=== PATIENT | male | born 1980 | race Caucasian/White ===

== ENCOUNTER 2019-04-26 14:28 | Observation (INO) | payer MEDICAID, SELFPAY ==
[2019-04-26] VITALS (10 sets, daily range): BP systolic 149–180; BP diastolic 90–126; PULSE 60–84; RESP 14–22; TEMP 36.7–37.1; O2SAT 94–100; BMI 28.3
--- NOTE | 2019-04-26 14:41 | ECG_ITS ---
Measurements Intervals [place] Rate: 71 P: 32 NC: 146 QRS: -22 QRSD: 118 T: 46 QT: 392 QTc: 426 SINUS RHYTHM LEFT VENTRICULAR HYPERTROPHY AND ST-T CHANGE [VOLTAGE CRITERIA PLUS ST/T ABNORMALITY] POSSIBLE SEPTAL MYOCARDIAL INFARCTION , POSSIBLY ACUTE [30 ms Q WAVE IN V1/V2] Compared to ECG 12/02/2016 05:58:51 ST (T wave) deviation now present Myocardial infarct finding now present Electronically Signed On 04-27-2019 11:26:41 [employer] by Juan Carlos Herrera M.D. [email or web address]
--- NOTE | 2019-04-26 14:41 | CT_ITS ---
WS: [id number] CT scan of the head, 04/26/2019 Clinical Data: syncope, headache Comparison: None. DLP: 778.[address] scans at [facility] use at least one of these dose optimization techniques: automat ed exposure control; mA and/or kV adjustment per patient size (includes targeted exams where dose is matched to clinical indication); or iterative reconstruction. Findings: The ventricular system is normal without shift. No recent infarct or hemorrhage is seen. There are no abnormal intracerebral masses. The cerebellum and brainstem are not remarkable. Bony windows of the skull and skull base show no fractures or erosions. There is soft tissue swelling over the right side of the vertex of the skull. The mastoid air cells, internal auditory canals, rory la turcica, intraorbital contents, and paranasal sinuses are unremarkable. CT/CT head wo con* [id number] Impression: Negative CT scan of the head
--- NOTE | 2019-04-26 14:41 | W.ED.SYNCOPE ---
Documented by User: GRISELDA Oconnor 04/26/19 16:55 HPI - Syncope General: Chief Complaint: Syncope Stated Complaint: Med reaction Time Seen by Provider: 04/26/19 14:35 Source: patient Mode of arrival: ambulatory Limitations: no limitations History of Present Illness: HPI narrative: Patient comes in today for concerns of syncopal episode. Patient reports getting up off the couch and going to the bathroom and urinating just as he completed urination patient became lightheaded and passed out. Patient awoke when he hit the floor and has been alert since then. Patient had medication changed yesterday and started on minoxidil and torsemide for his blood pressure control. Patient appears well. Patient is at baseline now. Patient also takes clonidine for his blood pressure and methadone for substance abuse. Associated symptoms: Reports headache(s) Review of Systems General: Reports: 10 or more systems reviewed and unremarkable except in HPI and below Neuro: Reports: headache and other (near-syncopal episode) PFSH ED PFSH: Statuses (acute, chronic, etc) shown below reflect problem list status as previously entered and may not be historically accurate Medical History Abscess of leg (Acute) Acute kidney injury superimposed on CKD (Acute) H/O drainage of abscess (Acute) History of drug abuse (Acute) Surgical History History of appendectomy (Acute) Family History Mother Bladder cancer Father CHF (congestive heart failure) Social History Smoking and tobacco status: never smoked Alcohol intake: never Substance/Drug Use: former Date of last use: Currently on methadone Marital status: Current occupational status: employed Current occupation: Runs a business Physical Exam Const: COMMON NORMALS: no apparent distress and oriented x3 GENERAL APPEARANCE: cooperative HENMT: COMMON NORMALS: normocephalic, external ears normal, EAC's normal, TM's normal bilaterally and external nose normal HEAD & SCALP: normal to inspection and normocephalic FACE & SINUS: normal facial exam NOSE: external nose normal GENERAL EAR: hearing not grossly impaired EXTERNAL EAR: Yes external ears normal EXTERNAL AUDITORY CANAL: EAC's normal TYMPANIC MEMBRANE: TM's normal bilaterally MOUTH: oral and palatal mucosa normal THROAT: posterior oropharynx normal Eye: COMMON NORMALS: PERRL and EOMs intact bilaterally PUPIL: Yes PERRL Neck/C-Spine: COMMON NORMALS: full ROM and no lymphadenopathy Lymph: LYMPHATIC: no lymphedema noted Chest: COMMONS NORMALS: inspection of chest normal and palpation of chest normal Resp: COMMON NORMALS: normal respiratory effort and clear to auscultation bilaterally AUSCULTATION: clear to auscultation bilaterally Cardio: COMMON NORMALS: regular rate and regular rhythm RATE: regular rate RHYTHM: regular rhythm GI: COMMON NORMALS: normal to inspection, nondistended, normoactive bowel sounds and non-tender : COMMON NORMALS: Yes no CVA tenderness BLADDER/KIDNEY EXAM: Yes no CVA tenderness Back/Pelvis: COMMON NORMALS: no CVA tenderness and thoracic and lumbar spine normal to inspection Extremity: COMMON NORMALS: normal to inspection GENERAL: No edema Neuro: COMMON NORMALS: oriented x3, moves all extremities and no focal motor deficits Psych: COMMON NORMALS: mental status grossly normal and cooperative Skin: COMMON NORMALS: no rashes or lesions noted GENERAL SKIN EXAM: no rashes or lesions noted Course ED course: 1455, reviewed EKG with whom referred a copy to Dr. Herrera for further evaluation. due to some computer reading for possible MS. wjw 1535, patient reports improvement in headache, resting well, no acute distress noted. wjw 1700, reviewed with Jamie Gómez, agreed to graciously assume care on my departure. wjw Vital Signs: Vital signs: Vital Signs Temperature 98.1 F 04/27/19 00:00 Pulse Rate 71 04/27/19 00:00 Respiratory Rate 16 04/27/19 00:00 Blood Pressure 168/102 04/27/19 00:00 Pulse Oximetry 95 04/27/19 00:00 MDM - Syncope Lab Data: Labs: Lab Results 04/26/19 04/26/19 04/26/19 Range/Units 14:53 14:53 14:53 WBC 10.0 (4.0-10.0) 10^3/ uL RBC 5.82 H (4.1-5.3) 10^6/u L Hgb 16.3 (11.7-16.6) g/dL Hct 50.9 (42.0-52.0) % MCV 87.5 (80-94) fL MCH 28.0 (28.0-34.0) pg MCHC 32.0 (30.0-36.0) g/dL RDW 13.5 (12.1-15.1) % Plt Count 343 (130-400) 10^3/c mm MPV 9.1 (7.4-10.4) fL Neut % (Auto) 66.6 % Lymph % (Auto) 21.4 % [place] % (Auto) 7.2 % Eos % (Auto) 4.2 % Baso % (Auto) 0.4 % Neut # (Auto) 6.7 (1.8-7.7) 10^3/u L Lymph # (Auto) 2.1 (0.8-4.8) 10^3/u L [place] # (Auto) 0.7 (0.2-0.9) 10^3/u L Eos # (Auto) 0.4 (0.0-0.8) 10^3/u L Baso # (Auto) 0.0 (0.0-0.1) 10^3/u L Nucleated RBC % (a uto) 0 % Nucleated RBCs # 0.0 /100WBC Sodium 136 (136-145) mmol/L Potassium 4.1 (3.5-5.1) mmol/L Chloride 96 L (98-107) mmol/L Carbon Dioxide 32 H (22-29) mmol/L Anion Gap 12.1 (5-19) BUN 27 H (6-20) mg/dL Creatinine 1.9 H (0.7-1.2) mg/dL GFR Calculation 39.9 L (90-130) mL/min Glucose 120 H (74-109) mg/dL Calcium 9.6 (8.6-10.0) mg/Dl Total Bilirubin 0.2 (0.15-1.2) mg/dL AST 22 (0-40) U/L ALT 8 (0-41) U/L Alkaline Phosphata se 130 (40-130) IU/L Troponin T Baselin e 44 H (0-15) ng/mL Troponin T 120 Min [place] (0-15) ng/mL Delta Troponin T (0-10) ABS# Total Protein 6.6 (6.6-8.7) g/dL Albumin 3.2 L (3.5-5.2) g/dL Globulin 3.4 (1.3-4.6) g/dL Urine Color (Yellow) Urine Appearance (CLEAR) Urine pH (5-7) Ur Specific Gravit y (1.005-1.030) Urine Protein (Negative) Urine Glucose (UA) (Normal) Urine Ketones (Negative) Urine Occult Blood (Negative) Urine Nitrate (Negative) Urine Bilirubin (NEGATIVE) Urine Urobilinogen (Negative) mg/dL Ur Leukocyte Saskia ase (Negative) Urine RBC (0-2) /hpf Urine WBC (0-5) /hpf Ur Squamous Epith Cells (0-5) Urine Bacteria (NONE) Urine Mucus Ur Random Urea Nit rogn mg/dL Urine Creatinine (39-259) mg/dL Urine Opiates Scre en (Negative) ng/mL Ur Barbiturates Sc reen (Negative) ng/mL Ur Phencyclidine S crn (Negative) ng/mL Ur Amphetamines Sc reen (Negative) ng/mL U Benzodiazepines Scrn (Negative) ng/mL Urine Cocaine Scre en (Negative) ng/mL U Marijuana (THC) Screen (Negative) ng/mL 04/26/19 04/26/19 04/26/19 Range/Units 15:25 15:25 15:25 WBC (4.0-10.0) 10^3/ uL RBC (4.1-5.3) 10^6/u L Hgb (11.7-16.6) g/dL Hct (42.0-52.0) % MCV (80-94) fL MCH (28.0-34.0) pg MCHC (30.0-36.0) g/dL RDW (12.1-15.1) % Plt Count (130-400) 10^3/c mm MPV (7.4-10.4) fL Neut % (Auto) % Lymph % (Auto) % [place] % (Auto) % Eos % (Auto) % Baso % (Auto) % Neut # (Auto) (1.8-7.7) 10^3/u L Lymph # (Auto) (0.8-4.8) 10^3/u L [place] # (Auto) (0.2-0.9) 10^3/u L Eos # (Auto) (0.0-0.8) 10^3/u L Baso # (Auto) (0.0-0.1) 10^3/u L Nucleated RBC % (a uto) % Nucleated RBCs # /100WBC Sodium (136-145) mmol/L Potassium (3.5-5.1) mmol/L Chloride (98-107) mmol/L Carbon Dioxide (22-29) mmol/L Anion Gap (5-19) BUN (6-20) mg/dL Creatinine (0.7-1.2) mg/dL GFR Calculation (90-130) mL/min Glucose (74-109) mg/dL Calcium (8.6-10.0) mg/Dl Total Bilirubin (0.15-1.2) mg/dL AST (0-40) U/L ALT (0-41) U/L Alkaline Phosphata se (40-130) IU/L Troponin T Baselin e (0-15) ng/mL Troponin T 120 Min [place] (0-15) ng/mL Delta Troponin T (0-10) ABS# Total Protein (6.6-8.7) g/dL Albumin (3.5-5.2) g/dL Globulin (1.3-4.6) g/dL Urine Color Straw (Yellow) Urine Appearance Clear (CLEAR) Urine pH 7 (5-7) Ur Specific Gravit y 1.010 (1.005-1.030) Urine Protein 3+ H (Negative) Urine Glucose (UA) Norm (Normal) Urine Ketones Negative (Negative) Urine Occult Blood 2+ H (Negative) Urine Nitrate Negative (Negative) Urine Bilirubin Neg (NEGATIVE) Urine Urobilinogen Norm (Negative) mg/dL Ur Leukocyte Saskia ase Negative (Negative) Urine RBC 0-4 H (0-2) /hpf Urine WBC None (0-5) /hpf Ur Squamous Epith Cells None (0-5) Urine Bacteria Trace (NONE) Urine Mucus 1+ Ur Random Urea Nit rogn 162 mg/dL Urine Creatinine (39-259) mg/dL Urine Opiates Scre en Negative (Negative) ng/mL Ur Barbiturates Sc reen Negative (Negative) ng/mL Ur Phencyclidine S crn Negative (Negative) ng/mL Ur Amphetamines Sc reen Negative (Negative) ng/mL U Benzodiazepines Scrn Negative (Negative) ng/mL Urine Cocaine Scre en Negative (Negative) ng/mL U Marijuana (THC) Screen Negative (Negative) ng/mL 04/26/19 04/26/19 Range/Units 15:25 16:54 WBC (4.0-10.0) 10^3/ uL RBC (4.1-5.3) 10^6/u L Hgb (11.7-16.6) g/dL Hct (42.0-52.0) % MCV (80-94) fL MCH (28.0-34.0) pg MCHC (30.0-36.0) g/dL RDW (12.1-15.1) % Plt Count (130-400) 10^3/c mm MPV (7.4-10.4) fL Neut % (Auto) % Lymph % (Auto) % [place] % (Auto) % Eos % (Auto) % Baso % (Auto) % Neut # (Auto) (1.8-7.7) 10^3/u L Lymph # (Auto) (0.8-4.8) 10^3/u L [place] # (Auto) (0.2-0.9) 10^3/u L Eos # (Auto) (0.0-0.8) 10^3/u L Baso # (Auto) (0.0-0.1) 10^3/u L Nucleated RBC % (a uto) % Nucleated RBCs # /100WBC Sodium (136-145) mmol/L Potassium (3.5-5.1) mmol/L Chloride (98-107) mmol/L Carbon Dioxide (22-29) mmol/L Anion Gap (5-19) BUN (6-20) mg/dL Creatinine (0.7-1.2) mg/dL GFR Calculation (90-130) mL/min Glucose (74-109) mg/dL Calcium (8.6-10.0) mg/Dl Total Bilirubin (0.15-1.2) mg/dL AST (0-40) U/L ALT (0-41) U/L Alkaline Phosphata se (40-130) IU/L Troponin T Baselin e (0-15) ng/mL Troponin T 120 Min [place] 61.51 H (0-15) ng/mL Delta Troponin T 17.51 H* (0-10) ABS# Total Protein (6.6-8.7) g/dL Albumin (3.5-5.2) g/dL Globulin (1.3-4.6) g/dL Urine Color (Yellow) Urine Appearance (CLEAR) Urine pH (5-7) Ur Specific Gravit y (1.005-1.030) Urine Protein (Negative) Urine Glucose (UA) (Normal) Urine Ketones (Negative) Urine Occult Blood (Negative) Urine Nitrate (Negative) Urine Bilirubin (NEGATIVE) Urine Urobilinogen (Negative) mg/dL Ur Leukocyte Saskia ase (Negative) Urine RBC (0-2) /hpf Urine WBC (0-5) /hpf Ur Squamous Epith Cells (0-5) Urine Bacteria (NONE) Urine Mucus Ur Random Urea Nit rogn mg/dL Urine Creatinine 27 L (39-259) mg/dL Urine Opiates Scre en (Negative) ng/mL Ur Barbiturates Sc reen (Negative) ng/mL Ur Phencyclidine S crn (Negative) ng/mL Ur Amphetamines Sc reen (Negative) ng/mL U Benzodiazepines Scrn (Negative) ng/mL Urine Cocaine Scre en (Negative) ng/mL U Marijuana (THC) Screen (Negative) ng/mL EKG Data^: EKG 1: Attestation: I personally reviewed and interpreted this EKG as follows: (Sinus rhythm rate 71, mild ST elelvation in V1 and V2, no ectopy, reviewed with ekg on 12/02/16 notes minor changes elevation in V1 an V2 were similar. Consulted with Dr. Bundy. wjw) EKG 2: Attestation: I personally reviewed and interpreted this EKG as follows: (Sinus rhythm, rate 65 bpm, no change from previous EKG, minimal artifact as compared to previous. wjw) Discharge Plan Discharge Patient Disposition: Admitted As Inpatient Admit Provider: Orlin Dickson Clinical Impression: Acute kidney injury superimposed on CKD, Chest tightness, Troponin level elevated Condition: Stable Interventions: ED Discharge Assessment Last Done: 04/26/19 18:51 Discharge Date/Time: 04/26/19 18:52 Coding Level of Care Code ED Manufacturing Technologist for Chg Fwd Exam Problem Focused Documented by User: GRISELDA Marcos 04/26/19 17:43 HPI - Syncope General: Chief Complaint: Syncope Stated Complaint: Med reaction Time Seen by Provider: 04/26/19 14:35 PFSH ED PFSH: Statuses (acute, chronic, etc) shown below reflect problem list status as previously entered and may not be historically accurate Medical History Abscess of leg (Acute) Acute kidney injury superimposed on CKD (Acute) H/O drainage of abscess (Acute) History of drug abuse (Acute) Surgical History History of appendectomy (Acute) Family History Mother Bladder cancer Father CHF (congestive heart failure) Social History Smoking and tobacco status: never smoked Alcohol intake: never Substance/Drug Use: former Date of last use: Currently on methadone Marital status: Current occupational status: employed Current occupation: Runs a [employer] Vital Signs: Vital signs: Vital Signs Temperature 98.1 F 04/27/19 00:00 Pulse Rate 71 04/27/19 00:00 Respiratory Rate 16 04/27/19 00:00 Blood Pressure 168/102 04/27/19 00:00 Pulse Oximetry 95 04/27/19 00:00 MDM - Syncope MDM Narrative: Medical decision making narrative: I spoke with Dr. Pinto at 1740 showed him the new EKG and talked about the delta change lab in troponin. Dr. Cunningham agreed to take the patient from here. Lab Data: Labs: Lab Results 04/26/19 04/26/19 04/26/19 Range/Units 14:53 14:53 14:53 WBC 10.0 (4.0-10.0) 10^3/ uL RBC 5.82 H (4.1-5.3) 10^6/u L Hgb 16.3 (11.7-16.6) g/dL Hct 50.9 (42.0-52.0) % MCV 87.5 (80-94) fL MCH 28.0 (28.0-34.0) pg MCHC 32.0 (30.0-36.0) g/dL RDW 13.5 (12.1-15.1) % Plt Count 343 (130-400) 10^3/c mm MPV 9.1 (7.4-10.4) fL Neut % (Auto) 66.6 % Lymph % (Auto) 21.4 % [place] % (Auto) 7.2 % Eos % (Auto) 4.2 % Baso % (Auto) 0.4 % Neut # (Auto) 6.7 (1.8-7.7) 10^3/u L Lymph # (Auto) 2.1 (0.8-4.8) 10^3/u L [place] # (Auto) 0.7 (0.2-0.9) 10^3/u L Eos # (Auto) 0.4 (0.0-0.8) 10^3/u L Baso # (Auto) 0.0 (0.0-0.1) 10^3/u L Nucleated RBC % (a uto) 0 % Nucleated RBCs # 0.0 /100WBC Sodium 136 (136-145) mmol/L Potassium 4.1 (3.5-5.1) mmol/L Chloride 96 L (98-107) mmol/L Carbon Dioxide 32 H (22-29) mmol/L Anion Gap 12.1 (5-19) BUN 27 H (6-20) mg/dL Creatinine 1.9 H (0.7-1.2) mg/dL GFR Calculation 39.9 L (90-130) mL/min Glucose 120 H (74-109) mg/dL Calcium 9.6 (8.6-10.0) mg/Dl Total Bilirubin 0.2 (0.15-1.2) mg/dL AST 22 (0-40) U/L ALT 8 (0-41) U/L Alkaline Phosphata se 130 (40-130) IU/L Troponin T Baselin e 44 H (0-15) ng/mL Troponin T 120 Min [place] (0-15) ng/mL Delta Troponin T (0-10) ABS# Total Protein 6.6 (6.6-8.7) g/dL Albumin 3.2 L (3.5-5.2) g/dL Globulin 3.4 (1.3-4.6) g/dL Urine Color (Yellow) Urine Appearance (CLEAR) Urine pH (5-7) Ur Specific Gravit y (1.005-1.030) Urine Protein (Negative) Urine Glucose (UA) (Normal) Urine Ketones (Negative) Urine Occult Blood (Negative) Urine Nitrate (Negative) Urine Bilirubin (NEGATIVE) Urine Urobilinogen (Negative) mg/dL Ur Leukocyte Saskia ase (Negative) Urine RBC (0-2) /hpf Urine WBC (0-5) /hpf Ur Squamous Epith Cells (0-5) Urine Bacteria (NONE) Urine Mucus Ur Random Urea Nit rogn mg/dL Urine Creatinine (39-259) mg/dL Urine Opiates Scre en (Negative) ng/mL Ur Barbiturates Sc reen (Negative) ng/mL Ur Phencyclidine S crn (Negative) ng/mL Ur Amphetamines Sc reen (Negative) ng/mL U Benzodiazepines Scrn (Negative) ng/mL Urine Cocaine Scre en (Negative) ng/mL U Marijuana (THC) Screen (Negative) ng/mL 04/26/19 04/26/19 04/26/19 Range/Units 15:25 15:25 15:25 WBC (4.0-10.0) 10^3/ uL RBC (4.1-5.3) 10^6/u L Hgb (11.7-16.6) g/dL Hct (42.0-52.0) % MCV (80-94) fL MCH (28.0-34.0) pg MCHC (30.0-36.0) g/dL RDW (12.1-15.1) % Plt Count (130-400) 10^3/c mm MPV (7.4-10.4) fL Neut % (Auto) % Lymph % (Auto) % [place] % (Auto) % Eos % (Auto) % Baso % (Auto) % Neut # (Auto) (1.8-7.7) 10^3/u L Lymph # (Auto) (0.8-4.8) 10^3/u L [place] # (Auto) (0.2-0.9) 10^3/u L Eos # (Auto) (0.0-0.8) 10^3/u L Baso # (Auto) (0.0-0.1) 10^3/u L Nucleated RBC % (a uto) % Nucleated RBCs # /100WBC Sodium (136-145) mmol/L Potassium (3.5-5.1) mmol/L Chloride (98-107) mmol/L Carbon Dioxide (22-29) mmol/L Anion Gap (5-19) BUN (6-20) mg/dL Creatinine (0.7-1.2) mg/dL GFR Calculation (90-130) mL/min Glucose (74-109) mg/dL Calcium (8.6-10.0) mg/Dl Total Bilirubin (0.15-1.2) mg/dL AST (0-40) U/L ALT (0-41) U/L Alkaline Phosphata se (40-130) IU/L Troponin T Baselin e (0-15) ng/mL Troponin T 120 Min [place] (0-15) ng/mL Delta Troponin T (0-10) ABS# Total Protein (6.6-8.7) g/dL Albumin (3.5-5.2) g/dL Globulin (1.3-4.6) g/dL Urine Color Straw (Yellow) Urine Appearance Clear (CLEAR) Urine pH 7 (5-7) Ur Specific Gravit y 1.010 (1.005-1.030) Urine Protein 3+ H (Negative) Urine Glucose (UA) Norm (Normal) Urine Ketones Negative (Negative) Urine Occult Blood 2+ H (Negative) Urine Nitrate Negative (Negative) Urine Bilirubin Neg (NEGATIVE) Urine Urobilinogen Norm (Negative) mg/dL Ur Leukocyte Saskia ase Negative (Negative) Urine RBC 0-4 H (0-2) /hpf Urine WBC None (0-5) /hpf Ur Squamous Epith Cells None (0-5) Urine Bacteria Trace (NONE) Urine Mucus 1+ Ur Random Urea Nit rogn 162 mg/dL Urine Creatinine (39-259) mg/dL Urine Opiates Scre en Negative (Negative) ng/mL Ur Barbiturates Sc reen Negative (Negative) ng/mL Ur Phencyclidine S crn Negative (Negative) ng/mL Ur Amphetamines Sc reen Negative (Negative) ng/mL U Benzodiazepines Scrn Negative (Negative) ng/mL Urine Cocaine Scre en Negative (Negative) ng/mL U Marijuana (THC) Screen Negative (Negative) ng/mL 04/26/19 04/26/19 Range/Units 15:25 16:54 WBC (4.0-10.0) 10^3/ uL RBC (4.1-5.3) 10^6/u L Hgb (11.7-16.6) g/dL Hct (42.0-52.0) % MCV (80-94) fL MCH (28.0-34.0) pg MCHC (30.0-36.0) g/dL RDW (12.1-15.1) % Plt Count (130-400) 10^3/c mm MPV (7.4-10.4) fL Neut % (Auto) % Lymph % (Auto) % [place] % (Auto) % Eos % (Auto) % Baso % (Auto) % Neut # (Auto) (1.8-7.7) 10^3/u L Lymph # (Auto) (0.8-4.8) 10^3/u L [place] # (Auto) (0.2-0.9) 10^3/u L Eos # (Auto) (0.0-0.8) 10^3/u L Baso # (Auto) (0.0-0.1) 10^3/u L Nucleated RBC % (a uto) % Nucleated RBCs # /100WBC Sodium (136-145) mmol/L Potassium (3.5-5.1) mmol/L Chloride (98-107) mmol/L Carbon Dioxide (22-29) mmol/L Anion Gap (5-19) BUN (6-20) mg/dL Creatinine (0.7-1.2) mg/dL GFR Calculation (90-130) mL/min Glucose (74-109) mg/dL Calcium (8.6-10.0) mg/Dl Total Bilirubin (0.15-1.2) mg/dL AST (0-40) U/L ALT (0-41) U/L Alkaline Phosphata se (40-130) IU/L Troponin T Baselin e (0-15) ng/mL Troponin T 120 Min [place] 61.51 H (0-15) ng/mL Delta Troponin T 17.51 H* (0-10) ABS# Total Protein (6.6-8.7) g/dL Albumin (3.5-5.2) g/dL Globulin (1.3-4.6) g/dL Urine Color (Yellow) Urine Appearance (CLEAR) Urine pH (5-7) Ur Specific Gravit y (1.005-1.030) Urine Protein (Negative) Urine Glucose (UA) (Normal) Urine Ketones (Negative) Urine Occult Blood (Negative) Urine Nitrate (Negative) Urine Bilirubin (NEGATIVE) Urine Urobilinogen (Negative) mg/dL Ur Leukocyte Saskia ase (Negative) Urine RBC (0-2) /hpf Urine WBC (0-5) /hpf Ur Squamous Epith Cells (0-5) Urine Bacteria (NONE) Urine Mucus Ur Random Urea Nit rogn mg/dL Urine Creatinine 27 L (39-259) mg/dL Urine Opiates Scre en (Negative) ng/mL Ur Barbiturates Sc reen (Negative) ng/mL Ur Phencyclidine S crn (Negative) ng/mL Ur Amphetamines Sc reen (Negative) ng/mL U Benzodiazepines Scrn (Negative) ng/mL Urine Cocaine Scre en (Negative) ng/mL U Marijuana (THC) Screen (Negative) ng/mL Discharge Plan Discharge Patient Disposition: Admitted As Inpatient Admit Provider: Orlin Dickson Clinical Impression: Acute kidney injury superimposed on CKD, Chest tightness, Troponin level elevated Condition: Stable Interventions: ED Discharge Assessment Last Done: 04/26/19 18:51 Discharge Date/Time: 04/26/19 18:52 Coding Level of Care Code ED Manufacturing Technologist for Chg Fwd Exam Problem Focused Documented by User: Danielle Palomo Octavio 04/27/19 01:53 HPI - Syncope General: Chief Complaint: Syncope Stated Complaint: Med reaction Time Seen by Provider: 04/26/19 14:35 PFSH ED PFSH: Statuses (acute, chronic, etc) shown below reflect problem list status as previously entered and may not be historically accurate Medical History Abscess of leg (Acute) Acute kidney injury superimposed on CKD (Acute) H/O drainage of abscess (Acute) History of drug abuse (Acute) Surgical History History of appendectomy (Acute) Family History Mother Bladder cancer Father CHF (congestive heart failure) Social History Smoking and tobacco status: never smoked Alcohol intake: never Substance/Drug Use: former Date of last use: Currently on methadone Marital status: Current occupational status: employed Current occupation: Runs a business [employer] Vital Signs: Vital signs: Vital Signs Temperature 98.1 F 04/27/19 00:00 Pulse Rate 71 04/27/19 00:00 Respiratory Rate 16 04/27/19 00:00 Blood Pressure 168/102 04/27/19 00:00 Pulse Oximetry 95 04/27/19 00:00 MDM - Syncope MDM Narrative: Medical decision making narrative: 17:45 -abnormal EKG and positive delta brought to my attention by Sanjay Gómez APN. Please see all previous physician and midlevel notes for histories, physical exam and medical decision-making notes. It was reported at the patient's first EKG was seen by Dr. Bundy and Dr. Herrera. Patient second EKG looks like he has progressive changes with T wave inversions and biphasic T waves in V4 through V6 and subtle ST segment depression in V6. Dr. Herrera reviewed these with me and he agrees but does not think there is any element of STEMI. The patient does relate to me he has had chest pressure intermittently today brought on by exertion but currently has no symptoms. I reviewed the case with Dr. Medellin who is agreeable to admission for cardiac consult and formal testing. Further care will be dictated by Dr. Herrera and Dr. Medellin on the floor. Lab Data: Attestation: I reviewed the patient's lab results. Labs: Lab Results 04/26/19 04/26/19 04/26/19 Range/Units 14:53 14:53 14:53 WBC 10.0 (4.0-10.0) 10^3/ uL RBC 5.82 H (4.1-5.3) 10^6/u L Hgb 16.3 (11.7-16.6) g/dL Hct 50.9 (42.0-52.0) % MCV 87.5 (80-94) fL MCH 28.0 (28.0-34.0) pg MCHC 32.0 (30.0-36.0) g/dL RDW 13.5 (12.1-15.1) % Plt Count 343 (130-400) 10^3/c mm MPV 9.1 (7.4-10.4) fL Neut % (Auto) 66.6 % Lymph % (Auto) 21.4 % [place] % (Auto) 7.2 % Eos % (Auto) 4.2 % Baso % (Auto) 0.4 % Neut # (Auto) 6.7 (1.8-7.7) 10^3/u L Lymph # (Auto) 2.1 (0.8-4.8) 10^3/u L [place] # (Auto) 0.7 (0.2-0.9) 10^3/u L Eos # (Auto) 0.4 (0.0-0.8) 10^3/u L Baso # (Auto) 0.0 (0.0-0.1) 10^3/u L Nucleated RBC % (a uto) 0 % Nucleated RBCs # 0.0 /100WBC Sodium 136 (136-145) mmol/L Potassium 4.1 (3.5-5.1) mmol/L Chloride 96 L (98-107) mmol/L Carbon Dioxide 32 H (22-29) mmol/L Anion Gap 12.1 (5-19) BUN 27 H (6-20) mg/dL Creatinine 1.9 H (0.7-1.2) mg/dL GFR Calculation 39.9 L (90-130) mL/min Glucose 120 H (74-109) mg/dL Calcium 9.6 (8.6-10.0) mg/Dl Total Bilirubin 0.2 (0.15-1.2) mg/dL AST 22 (0-40) U/L ALT 8 (0-41) U/L Alkaline Phosphata se 130 (40-130) IU/L Troponin T Baselin e 44 H (0-15) ng/mL Troponin T 120 Min [place] (0-15) ng/mL Delta Troponin T (0-10) ABS# Total Protein 6.6 (6.6-8.7) g/dL Albumin 3.2 L (3.5-5.2) g/dL Globulin 3.4 (1.3-4.6) g/dL Urine Color (Yellow) Urine Appearance (CLEAR) Urine pH (5-7) Ur Specific Gravit y (1.005-1.030) Urine Protein (Negative) Urine Glucose (UA) (Normal) Urine Ketones (Negative) Urine Occult Blood (Negative) Urine Nitrate (Negative) Urine Bilirubin (NEGATIVE) Urine Urobilinogen (Negative) mg/dL Ur Leukocyte Saskia ase (Negative) Urine RBC (0-2) /hpf Urine WBC (0-5) /hpf Ur Squamous Epith Cells (0-5) Urine Bacteria (NONE) Urine Mucus Ur Random Urea Nit rogn mg/dL Urine Creatinine (39-259) mg/dL Urine Opiates Scre en (Negative) ng/mL Ur Barbiturates Sc reen (Negative) ng/mL Ur Phencyclidine S crn (Negative) ng/mL Ur Amphetamines Sc reen (Negative) ng/mL U Benzodiazepines Scrn (Negative) ng/mL Urine Cocaine Scre en (Negative) ng/mL U Marijuana (THC) Screen (Negative) ng/mL 04/26/19 04/26/19 04/26/19 Range/Units 15:25 15:25 15:25 WBC (4.0-10.0) 10^3/ uL RBC (4.1-5.3) 10^6/u L Hgb (11.7-16.6) g/dL Hct (42.0-52.0) % MCV (80-94) fL MCH (28.0-34.0) pg MCHC (30.0-36.0) g/dL RDW (12.1-15.1) % Plt Count (130-400) 10^3/c mm MPV (7.4-10.4) fL Neut % (Auto) % Lymph % (Auto) % [place] % (Auto) % Eos % (Auto) % Baso % (Auto) % Neut # (Auto) (1.8-7.7) 10^3/u L Lymph # (Auto) (0.8-4.8) 10^3/u L [place] # (Auto) (0.2-0.9) 10^3/u L Eos # (Auto) (0.0-0.8) 10^3/u L Baso # (Auto) (0.0-0.1) 10^3/u L Nucleated RBC % (a uto) % Nucleated RBCs # /100WBC Sodium (136-145) mmol/L Potassium (3.5-5.1) mmol/L Chloride (98-107) mmol/L Carbon Dioxide (22-29) mmol/L Anion Gap (5-19) BUN (6-20) mg/dL Creatinine (0.7-1.2) mg/dL GFR Calculation (90-130) mL/min Glucose (74-109) mg/dL Calcium (8.6-10.0) mg/Dl Total Bilirubin (0.15-1.2) mg/dL AST (0-40) U/L ALT (0-41) U/L Alkaline Phosphata se (40-130) IU/L Troponin T Baselin e (0-15) ng/mL Troponin T 120 Min [place] (0-15) ng/mL Delta Troponin T (0-10) ABS# Total Protein (6.6-8.7) g/dL Albumin (3.5-5.2) g/dL Globulin (1.3-4.6) g/dL Urine Color Straw (Yellow) Urine Appearance Clear (CLEAR) Urine pH 7 (5-7) Ur Specific Gravit y 1.010 (1.005-1.030) Urine Protein 3+ H (Negative) Urine Glucose (UA) Norm (Normal) Urine Ketones Negative (Negative) Urine Occult Blood 2+ H (Negative) Urine Nitrate Negative (Negative) Urine Bilirubin Neg (NEGATIVE) Urine Urobilinogen Norm (Negative) mg/dL Ur Leukocyte Saskia ase Negative (Negative) Urine RBC 0-4 H (0-2) /hpf Urine WBC None (0-5) /hpf Ur Squamous Epith Cells None (0-5) Urine Bacteria Trace (NONE) Urine Mucus 1+ Ur Random Urea Nit rogn 162 mg/dL Urine Creatinine (39-259) mg/dL Urine Opiates Scre en Negative (Negative) ng/mL Ur Barbiturates Sc reen Negative (Negative) ng/mL Ur Phencyclidine S crn Negative (Negative) ng/mL Ur Amphetamines Sc reen Negative (Negative) ng/mL U Benzodiazepines Scrn Negative (Negative) ng/mL Urine Cocaine Scre en Negative (Negative) ng/mL U Marijuana (THC) Screen Negative (Negative) ng/mL 04/26/19 04/26/19 Range/Units 15:25 16:54 WBC (4.0-10.0) 10^3/ uL RBC (4.1-5.3) 10^6/u L Hgb (11.7-16.6) g/dL Hct (42.0-52.0) % MCV (80-94) fL MCH (28.0-34.0) pg MCHC (30.0-36.0) g/dL RDW (12.1-15.1) % Plt Count (130-400) 10^3/c mm MPV (7.4-10.4) fL Neut % (Auto) % Lymph % (Auto) % [place] % (Auto) % Eos % (Auto) % Baso % (Auto) % Neut # (Auto) (1.8-7.7) 10^3/u L Lymph # (Auto) (0.8-4.8) 10^3/u L [place] # (Auto) (0.2-0.9) 10^3/u L Eos # (Auto) (0.0-0.8) 10^3/u L Baso # (Auto) (0.0-0.1) 10^3/u L Nucleated RBC % (a uto) % Nucleated RBCs # /100WBC Sodium (136-145) mmol/L Potassium (3.5-5.1) mmol/L Chloride (98-107) mmol/L Carbon Dioxide (22-29) mmol/L Anion Gap (5-19) BUN (6-20) mg/dL Creatinine (0.7-1.2) mg/dL GFR Calculation (90-130) mL/min Glucose (74-109) mg/dL Calcium (8.6-10.0) mg/Dl Total Bilirubin (0.15-1.2) mg/dL AST (0-40) U/L ALT (0-41) U/L Alkaline Phosphata se (40-130) IU/L Troponin T Baselin e (0-15) ng/mL Troponin T 120 Min [place] 61.51 H (0-15) ng/mL Delta Troponin T 17.51 H* (0-10) ABS# Total Protein (6.6-8.7) g/dL Albumin (3.5-5.2) g/dL Globulin (1.3-4.6) g/dL Urine Color (Yellow) Urine Appearance (CLEAR) Urine pH (5-7) Ur Specific Gravit y (1.005-1.030) Urine Protein (Negative) Urine Glucose (UA) (Normal) Urine Ketones (Negative) Urine Occult Blood (Negative) Urine Nitrate (Negative) Urine Bilirubin (NEGATIVE) Urine Urobilinogen (Negative) mg/dL Ur Leukocyte Saskia ase (Negative) Urine RBC (0-2) /hpf Urine WBC (0-5) /hpf Ur Squamous Epith Cells (0-5) Urine Bacteria (NONE) Urine Mucus Ur Random Urea Nit rogn mg/dL Urine Creatinine 27 L (39-259) mg/dL Urine Opiates Scre en (Negative) ng/mL Ur Barbiturates Sc reen (Negative) ng/mL Ur Phencyclidine S crn (Negative) ng/mL Ur Amphetamines Sc reen (Negative) ng/mL U Benzodiazepines Scrn (Negative) ng/mL Urine Cocaine Scre en (Negative) ng/mL U Marijuana (THC) Screen (Negative) ng/mL Imaging Data^: CT Head: Radiologist's impression: [address] [place] [address] CT Scan Report Signed Patient: Fabrice Kendrick Unit #: [id number] : 1980 Age/Sex: 38 / M ADM Date: 04/26/19 Loc: ER Room/Bed: Attending Dr: Ordering Provider/Ordering MD: Alfa Mora NP Date of Service: 04/26/19 Procedure(s): CT head wo con* [id number] Accession Number(s): [id number] Report Number: [id number] WS: [id number] CT scan of the head, 04/26/2019 Clinical Data: syncope, headache Comparison: None. DLP: 778.[address] scans at [facility] use at least one of these dose optimization techniques: automated exposure control; mA and/or kV adjustment per patient size (includes targeted exams where dose is matched to clinical indication); or iterative reconstruction. Findings: The ventricular system is normal without shift. No recent infarct or hemorrhage is seen. There are no abnormal intracerebral masses. The cerebellum and brainstem are not remarkable. Bony windows of the skull and skull base show no fractures or erosions. There is soft tissue swelling over the right side of the vertex of the skull. The mastoid air cells, internal auditory canals, sella turcica, intraorbital contents, and paranasal sinuses are unremarkable. CT/CT head wo con* [id number] Impression: Negative CT scan of the head Dictated By: Therese Bose MD Signed By: Therese Bose MD Signed Date/Time: 04/26/19 1503 DD/ 1500 CXR: My impression: No acute cardiopulmonary findings. EKG Data^: EKG 2: Attestation: I personally reviewed and interpreted this EKG as follows: (EKG read and performed at 1641 -normal sinus rhythm at 65 beats a minute, left axis deviation, LVH, nonspecific ST segment changes in V1 and V2 with biphasic T waves in V4 and V5 with inverted T waves in V6 with subtle ST segment depression. Changes are new from previous.) Discharge Plan Discharge Patient Disposition: Admitted As Inpatient Admit Provider: Orlin Dickson Clinical Impression: Acute kidney injury superimposed on CKD, Chest tightness, Troponin level elevated Condition: Stable Interventions: ED Discharge Assessment Last Done: 04/26/19 18:51 Discharge Date/Time: 04/26/19 18:52 Coding Level of Care Code ED Manufacturing Technologist for Chg Fwd Exam Problem Focused
[2019-04-26 14:58] LABS: Basophils % 0.4 %; Eosinophils # 0.4 10^3/uL (0.0-0.8); Eosinophils % 4.2 %; Hematocrit 50.9 % (42.0-52.0); Hemoglobin 16.3 g/dL (11.7-16.6); Lymphocytes # 2.1 10^3/uL (0.8-4.8); Lymphocytes % 21.4 %; Mean Corpuscular Volume 87.5 fL (80-94); Mean Platelet Volume 9.1 fL (7.4-10.4); Monocytes # 0.7 10^3/uL (0.2-0.9); Monocytes % 7.2 %; Neutrophils # 6.7 10^3/uL (1.8-7.7); Neutrophils % 66.6 %; Nucleated Red Blood Cells % 0 %; Platelet Count 343 10^3/cmm (130-400); Red Blood Count 5.82 10^6/uL (4.1-5.3); Red Cell Distribution Width 13.5 % (12.1-15.1)
[2019-04-26 15:12] LABS: Alanine Aminotransferase 8 U/L (0-41); Albumin Level 3.2 g/dL (3.5-5.2); Alkaline Phosphatase 130 IU/L (40-130); Anion Gap 12.1 (5-19); Aspartate Amino Transferase 22 U/L (0-40); Blood Urea Nitrogen 27 mg/dL (6-20); Calcium 9.6 mg/Dl (8.6-10.0); Carbon Dioxide 32 mmol/L (22-29); Chloride 96 mmol/L (98-107); Globulin 3.4 g/dL (1.3-4.6); Glomerular Filtration Rate 39.9 mL/min (90-130); Glucose 120 mg/dL (74-109); Potassium 4.1 mmol/L (3.5-5.1); Sodium 136 mmol/L (136-145); Total Bilirubin 0.2 mg/dL (0.15-1.2); Total Protein 6.6 g/dL (6.6-8.7)
[2019-04-26] MEDS: diphenhydrAMINE 50 mg/mL SDV 1mL 25 MG IVP (15:12)
[2019-04-26 15:13] LABS: Troponin(5th) Baseline 44 ng/mL (0-15)
[2019-04-26] MEDS: metoclopramide 5 mg/mL SDV 2 mL 10 MG IVP (15:18)
[2019-04-26 16:20] LABS: Bilirubin Urine Neg (NEGATIVE); Blood Urine 2+ (Negative); Glucose Urine UA Norm (Normal); Ketones Urine Negative (Negative); Leukocyte Esterase Urine Negative (Negative); Nitrate Urine Negative (Negative); Protein Urine 3+ (Negative); Urine Appearance Clear (CLEAR); Urine Color Straw (Yellow); Urobilinogen Urine Norm (Negative); pH Urine 7 (5-7)
[2019-04-26 16:30] LABS: Add Urine Culture? No; Bacteria Urine TRACE; Mucus Urine 1+; RBC Urine 0-4 /hpf (0-2)
--- NOTE | 2019-04-26 16:41 | ECG_ITS ---
Measurements Intervals [place] Rate: 65 P: 34 PA: 140 QRS: -25 QRSD: 118 T: -11 QT: 424 QTc: 442 SINUS RHYTHM LEFT VENTRICULAR HYPERTROPHY AND ST-T CHANGE [VOLTAGE CRITERIA PLUS ST/T ABNORM ABNORMALITY] POSSIBLE SEPTAL MYOCARDIAL INFARCTION [30 ms Q WAVE IN V1/V2] Compared to ECG 12/02/2016 05:58:51 ST (T wave) deviation now present Myocardial infarct finding now present Electronically Signed On 04-27-2019 11:31:04 PNEUMATIC DRUM SANDER by Juan Carlos Herrera M.D. [id number]
[2019-04-26 16:45] LABS: Amphetamines Screen Urine Negative (Negative); Barbiturates Screen Urine Negative (Negative); Benzodiazepines Screen Urine Negative (Negative); Cocaine Screen Urine Negative (Negative); Opiate Screen Urine Negative (Negative); PCP Screen Urine Negative (Negative); THC Screen Urine Negative (Negative)
[2019-04-26 17:27] LABS: Troponin 5 2HR 61.51 ng/mL (0-15)
[2019-04-26 17:32] LABS: Troponin 5 2HR Delta 17.51 ABS# (0-10)
--- NOTE | 2019-04-26 18:06 | XRR_ITS ---
PROCEDURE INFORMATION: Exam: XR Chest, 1 View Exam date and time: 04/26/2019 6:21 PM Age: 38 years old Clinical indication: Other: Poss allergic reaction; Syncope; Additional info: Cough TECHNIQUE: Imaging protocol: XR of the chest Views: 1 view. COMPARISON: CR Chest 1 [place] [id number] 12/02/2016 2:01 AM FINDINGS: Lung volumes are mildly low. Otherwise no focal pulmonary consolidation is demonstrated on this single frontal image. No significant obscuration of the lateral costophrenic angles is demonstrated. No significant vascular congestion is demonstrated. Visualized cardiac silhouette size appears accentuated by low lung volumes. Thoracic aorta is unfolded. XR/XR chest 1V portable [id number] IMPRESSION: No definite acute pulmonary process is demonstrated.
--- NOTE | 2019-04-26 18:47 | P.HP_ITS ---
Providers/Chief Complaint Admitting Physician: Orlin Dickson Chief Complaint: SYNCOPE History of Present Illness Fabrice Kendrick is a 38 year old male with history of hypertension, chronic kidney disease, episode of atrial fibrillation, history of drug abuse, currently on methadone, was recently started on minoxidil in addition to clonidine and torsemide by his electrical products engineer due to difficult to control hypertension. He reports he took minoxidil today for the first time this morning. He reports after taking his medications he became sleepy. After a nap he urinated and while walking out of the restroom blacked out, falling to the ground, reportedly regaining consciousness after hitting his neck on the back of a chair. Reports also hitting his head now with a lump on the back. He reports after regaining consciousness also was feeling chest tightness, across his chest, associated with some shortness of breath, which lasted several hours. Denies any relieving factors. Reports it did improve after medications received in ER. Noted EKG abnormalities in ER, with coincidental ST elevation V1-V3, felt to be normal variant on review with cardiology. With noted LVH. However, also with T wave inversions laterally. Troponin found mildly elevated at 44, however, with positive delta at 2 hours of 17.51 up to 61.51. He reports that symptoms in his chest have not returned at this time. He denies taking aspirin at home. He is a never smoker. He has hypertension, chronic kidney disease. Reports family history of heart disease with congestive heart failure in his father who is currently hospitalized due to this in [place]. He lost his mother 2 weeks ago due to cancer. Review of Systems Const: Denies: fever, chills, body aches or malaise Eyes: Denies: change in vision or eye redness ENMT: Denies: throat pain, oral sores/lesions or ear pain Card: Reports: chest pain, syncope and shortness of breath on exertion; Denies: edema Resp: Reports: shortness of breath; Denies: productive cough, change in phlegm color or coughing up blood GI: Denies: abdominal pain, nausea, vomiting, diarrhea, constipation, blood in stool or black tarry stool : Denies: flank pain, difficulty urinating, urinary frequency or blood in urine Musc: Denies: back pain, joint swelling or redness Skin/Breast: Denies: rash, sores or new lesion Neuro: Reports: dizziness; Denies: headache, numbness in extremities, weakness in extremities, confusion or seizure-like activity Endo: Denies: excessive urination or excessive thirst David/Lymph: Denies: easy bleeding or purpura All/Imm: Denies: hives, throat swelling or tongue swelling Medications/Allergies Home Medications Medication Instructions Recorded Confirmed Last Taken Type clonidine HCl 0.1 mg PO TID 04/26/19 04/26/19 04/26/19 History methadone 80 mg PO DAILY 04/26/19 04/26/19 04/25/19 History minoxidil 5 mg PO BID 04/26/19 04/26/19 04/26/19 History torsemide 20 mg PO BID 04/26/19 04/26/19 04/26/19 History Allergies Allergy/AdvReac Type Severity Reaction Status Date / Time No Known Allergies Allergy Verified 04/26/19 14:40 PFSH Acute PFSH: Statuses (acute, chronic, etc) shown below reflect problem list status as previously entered and may not be historically accurate Medical History Abscess of leg (Acute) Acute kidney injury superimposed on CKD (Acute) H/O drainage of abscess (Acute) History of drug abuse (Acute) Surgical History History of appendectomy (Acute) Family History Mother Bladder cancer Father CHF (congestive heart failure) Social History Smoking and tobacco status: never smoked Alcohol intake: never Substance/Drug Use: former Date of last use: Currently on methadone Marital status: Current occupational status: employed Current occupation: Runs a [employer] Vitals/I&O/Wt Last Vital Signs Pulse 63 04/26/19 18:12 Resp 14 04/26/19 18:12 BP 153/108 04/26/19 18:12 Pulse Ox 98 04/26/19 18:12 Weight last 48 hrs Weight 97.522 kg Physical Exam Const: COMMON NORMALS: no apparent distress and oriented x3 HENMT: COMMON NORMALS: oropharynx normal Neck/C-Spine: COMMON NORMALS: no JVD Resp: COMMON NORMALS: normal respiratory effort and clear to auscultation bilaterally AUSCULTATION: clear to auscultation bilaterally Cardio: COMMON NORMALS: no JVD, regular rhythm, S1 normal heart sound, S2 normal heart sound and no murmurs RHYTHM: regular rhythm HEART SOUNDS: S1 normal and S2 normal GI: COMMON NORMALS: normal to inspection, nondistended, normoactive bowel sounds, soft to palpation and non-tender PALPATION: Yes soft Extremity: COMMON NORMALS: no joint enlargement and no pedal edema GENERAL: Yes edema (Trace at the ankles which he reports is chronic secondary to chronic kidney disease) Neuro: COMMON NORMALS: oriented x3 and moves all extremities Skin: COMMON NORMALS: no rashes or lesions noted GENERAL SKIN EXAM: no rashes or lesions noted Data : 04/26/19 14:53 04/26/19 14:53 A&P Assessment and plan (1) Chest tightness: Chest tightness after his fall, lasting several hours. Resolved after receiving medications in ER. Currently without any discomfort. Reports associated shortness of breath. Chest x-ray unremarkable. Possibly secondary to chest trauma during his fall, although There Are Troponin and EKG changes, so is being kept overnight for observation and additional assessment. Status: Acute Code(s): R07.89 - Other chest pain (2) Troponin level elevated: Initial troponin mildly elevated at 44, with positive delta up to 61.51, delta 17.51. Nonspecific EKG changes with T wave inversions laterally. Incidental ST elevation thought to be normal variant by review with cardiology. Chest tightness after syncopal event. Risk factors for coronary disease including hypertension, chronic kidney disease, family history of heart disease with congestive heart failure in his father who is currently admitted in [place]. He also reports of his mother 2 weeks ago. Etiology of troponin elevation at this time is not clear. There is a significant rise, although values overall are not very high, in the setting of poorly controlled hypertension, possibly with blood pressure variation/hypotension after taking minoxidil for the first time, and he does have chronic kidney disease although troponin was normal back in 2017 with creatinine of 2.1. Current creatinine is 1.9. We will complete troponin EKG series. Stress testing is unfortunately unavailable over the weekend. We will assess him with TTE, also to rule out pos sible Takotsubo cardiomyopathy. Appreciate cardiology assessment and recommendations regarding disposition and timing of additional risk stratification. Status: Acute Code(s): R79.89 - Other specified abnormal findings of blood chemistry (3) Syncope: This appears may have been orthostatic after taking minoxidil for the first time, also on clonidine and torsemide. For now we will continue clonidine due to persistent hypertension, hold minoxidil. Torsemide due to acute kidney injury. Assess orthostatic blood pressure in the morning. Status: Acute Code(s): R55 - Syncope and collapse (4) Acute kidney injury superimposed on CKD: Creatinine 1.9. Reports chronic kidney disease for which he follows with electrical products engineer secondary to hypertensive nephropathy. For now hold torsemide as with orthostatic symptoms, possible superimposed prerenal acute kidney injury on chronic kidney disease. Will check urine studies. Status: Acute Code(s): N17.9 - Acute kidney failure, unspecified; N18.9 - Chronic kidney disease, unspecified (5) History of drug abuse: Asks that he would like to make it to methadone clinic tomorrow morning if possible. Status: Acute Code(s): F19.11 - Other psychoactive substance abuse, in remission Attestations Medical Necessity Statement*: Place in observation. Coding Level of Care Code Acute Scalp Specialist for Anam Mijares Diagnoses Chest tightness R07.89 Troponin level elevated R79.89 Syncope R55 Acute kidney injury superimposed on CKD N17.9; N18.9 History of drug abuse F19.11
[2019-04-26 19:59] LABS: Urine Creatinine 27 mg/dL (39-259)
[2019-04-26 20:14] LABS: Urea Nitrogen,Urine Random 162 mg/dL
[2019-04-26] MEDS: cloNIDine 0.1 mg Tablet PO (20:25)
[2019-04-26] MEDS: sodium chloride 0.9% 1,000 ML 100 ML IV (20:25)
--- NOTE | 2019-04-26 20:41 | ECG_ITS ---
Measurements Intervals [place] Rate: 71 P: 39 PA: 148 QRS: -22 QRSD: 116 T: 5 QT: 400 QTc: 435 SINUS RHYTHM LEFT VENTRICULAR HYPERTROPHY AND ST-T CHANGE [VOLTAGE CRITERIA PLUS ST/T ABNORMALITY] POSSIBLE SEPTAL MYOCARDIAL INFARCTION [30 ms Q WAVE IN V1/V2] Compared to ECG 12/02/2016 05:58:51 ST (T wave) deviation now present Myocardial infarct finding now present Electronically Signed On 04-27-2019 11:32:00 SENIOR LINUX SYSTEMS ENGINEER by Juan Carlos Herrera M.D. [id number]
[2019-04-26 22:39] LABS: Troponin 5 6HR 52.54 ng/L (0-15); Troponin 5 6HR Delta 8.54 ng/L (0-12)
--- NOTE | 2019-04-26 23:59 | ECG_ITS ---
Measurements Intervals [place] Rate: 63 P: 29 TN: 147 QRS: -23 QRSD: 121 T: -34 QT: 435 QTc: 447 SINUS RHYTHM LEFT VENTRICULAR HYPERTROPHY AND ST-T CHANGE [VOLTAGE CRITERIA PLUS ST/T ABNORMALITY] Compared to ECG 12/02/2016 05:58:51 ST (T wave) deviation now present Electronically Signed On 04-27-2019 11:33:09 OCEANOGRAPHIC METEOROLOGIST by Juan Carlos Herrera M.D. [id number]
[2019-04-27] VITALS: BP 168/102; PULSE 71; RESP 16; TEMP 36.7; O2SAT 95
[2019-04-27] MEDS: acetaminophen 325 mg Tablet 650 MG PO (03:06)
[2019-04-27 04:00] VITALS: BP 161/105; PULSE 62; RESP 16; TEMP 37; O2SAT 96
[2019-04-27] MEDS: sodium chloride 0.9% 1,000 ML 100 ML IV (05:32)
[2019-04-27 05:40] LABS: Basophils # 0.1 10^3/uL (0.0-0.1); Basophils % 0.4 %; Eosinophils # 0.4 10^3/uL (0.0-0.8); Eosinophils % 3.4 %; Hematocrit 49.7 % (42.0-52.0); Hemoglobin 15.7 g/dL (11.7-16.6); Lymphocytes # 2.2 10^3/uL (0.8-4.8); Lymphocytes % 17.5 %; Mean Corpuscular HGB Conc 31.6 g/dL (30.0-36.0); Mean Corpuscular Hemoglobin 28.7 pg (28.0-34.0); Mean Corpuscular Volume 90.9 fL (80-94); Mean Platelet Volume 9.8 fL (7.4-10.4); Monocytes # 0.9 10^3/uL (0.2-0.9); Monocytes % 6.9 %; Neutrophils # 8.9 10^3/uL (1.8-7.7); Neutrophils % 71.3 %; Nucleated Red Blood Cells % 0 %; Platelet Count 315 10^3/cmm (130-400); Red Blood Count 5.47 10^6/uL (4.1-5.3); Red Cell Distribution Width 13.8 % (12.1-15.1); White Blood Count 12.5 10^3/uL (4.0-10.0)
[2019-04-27 06:02] LABS: Alanine Aminotransferase 7 U/L (0-41); Albumin Level 2.7 g/dL (3.5-5.2); Alkaline Phosphatase 111 IU/L (40-130); Anion Gap 15.5 (5-19); Blood Urea Nitrogen 25 mg/dL (6-20); Calcium 8.8 mg/Dl (8.6-10.0); Carbon Dioxide 26 mmol/L (22-29); Chloride 101 mmol/L (98-107); Globulin 3.2 g/dL (1.3-4.6); Glomerular Filtration Rate 39.9 mL/min (90-130); Glucose 94 mg/dL (74-109); Potassium 4.5 mmol/L (3.5-5.1); Sodium 138 mmol/L (136-145); Total Bilirubin 0.2 mg/dL (0.15-1.2); Total Protein 5.9 g/dL (6.6-8.7)
[2019-04-27 06:08] LABS: Aspartate Amino Transferase 22 U/L (0-40)
[2019-04-27 07:56] VITALS: BP 200/148
[2019-04-27] MEDS: cloNIDine 0.1 mg Tablet PO (07:56)
[2019-04-27 08:00] VITALS: PULSE 71; RESP 18; TEMP 36.9; O2SAT 96
--- NOTE | 2019-04-27 08:47 | PC.NURSE ---
Addendum entered by Sierra Hinds RN 04/27/19 10:27: AMA paper signed by pt after discussion with the doctor. Pt left with family and IV catheter tip was removed by pt. no bleeding or hematoma to right AC site. Original Note: Patient left AGAINST MEDICAL ADVICE After discussion with Dr. Dickson through voalte phone regarding his methadone, his risk and high blood pressure risks and this signee educating him on his risks of a heart attack and , pt still chooses to leave so he can go to the pain clinic for his methadone.
--- NOTE | 2019-04-27 10:16 | P.DS_ITS ---
Discharge Providers Date of Admission: 04/26/19 18:27 Date of Discharge: 04/27/19 Attending Provider at Admission: Orlin Dickson Attending Provider at Discharge: Orlin Dickson Diagnoses at Discharge Discharge Diagnosis (1) Chest tightness: Status: Acute (2) Troponin level elevated: Status: Acute (3) Syncope: Status: Acute (4) Acute kidney injury superimposed on CKD: Status: Acute (5) History of drug abuse: Status: Acute Reason for Visit Reason for Visit: Reason For Visit: SYNCOPE Hospital Course Hospital Course: 38-year-old gentleman with chronic kidney disease, secondary to hypertensive nephropathy, with difficult to control hypertension for which she follows with a custodial maintenance worker, with history of drug abuse in the past, currently on methadone, with family history of heart disease, was placed in observation after a syncopal episode, followed by chest tightness around 2 PM yesterday afternoon after taking minoxidil for the first time as prescribed to him by his custodial maintenance worker for hypertension. Syncopal event happened while walking out of the restroom after micturition. Suspected orthostatic/hypotensive episode. Minoxidil was held. His blood pressure was elevated initially with improvement overnight. He was noted to have T wave inversions laterally on his EKG, as well as incidental ST elevations which on review by cardiology with ER physician were thought to be a physiologic variant. He was free of chest pressure in ER. Troponin with initial elevation to 44, with positive delta of 17.51, rising to 61.51 to 2 hours. As noted his blood pressures did improve, perhaps contributing to his troponin elevation, although with risk factors for coronary disease he was kept for observation, assessment by TTE and by car diology. His blood pressure noted again elevated at 200/148 this morning. He preferred to leave AGAINST MEDICAL ADVICE despite the elevated blood pressure, as well as discussion with him regarding possible unresolved/undiagnosed cardiac problem as we do not yet have his TTE report. He was also not yet assessed by the office machine technician. He was concerned that methadone clinic was closing at 9 AM this morning, and would not reopen until Monday, and that he would not be able to get his methadone. He also did not feel any pain or discomfort, he did not think anything was wrong with his heart. I discussed with him again regarding prior findings of elevated troponin, EKG changes, as well as his elevated blood pressures, and on optimized medications. Prior to this conversation I also discussed with methadone clinic, and they confirmed that the are closing at 9 AM, and that they do not reopen until Monday, however, provided me with his dose of methadone which is 80 mg daily, and stated that instead we could provide the medications for him to take home until the clinic reopens on Monday. I have discussed all this with him over the phone, however, he verbalized understanding, but expressed that he still would prefer to leave. When asked if there was another reason that he wanted to leave, he stated not really, and that he just did not want to stay. He verbalized understanding that he was at risk of further deterioration, harm and possibly , as well as that we will be ordering some additional follow-up studies for him including stress test and lab tests, as well as that he should follow-up with his usual providers as soon as possible and he is able to return to the hospital at any time. Physical Exam Narrative: EXAM NARRATIVE: He could not be examined as he left AGAINST MEDICAL ADVICE before I could see him. Discharge Data Data Completed and Pending: Completed Studies During Hospitalization Category Date Time Status CT head wo con* [id number] Urgent Cat Scan 04/26/19 14:41 Completed XR chest 1V cash ble [id number] Stat Exams 04/26/19 18:06 Completed Pending at discharge Category Date Time Status CV echo complete* [id number] Routine Ultrasound 04/27/19 19:31 Taken Labs from last 24 hours 04/27/19 04/27/19 04/26/19 04:50 04:50 21:08 WBC 12.5 H RBC 5.47 H Hgb 15.7 Hct 49.7 MCV 90.9 MCH 28.7 MCHC 31.6 RDW 13.8 Plt Count 315 MPV 9.8 Neut % (Auto) 71.3 Lymph % (Auto) 17.5 Alcorn % (Auto) 6.9 Eos % (Auto) 3.4 Baso % (Auto) 0.4 Neut # (Auto) 8.9 H Lymph # (Auto) 2.2 Alcorn # (Auto) 0.9 Eos # (Auto) 0.4 Baso # (Auto) 0.1 Nucleated RBC % (a uto) 0 Nucleated RBCs # 0.0 Sodium 138 Potassium 4.5 Chloride 101 Carbon Dioxide 26 Anion Gap 15.5 BUN 25 H Creatinine 1.9 H GFR Calculation 39.9 L Glucose 94 Calcium 8.8 Total Bilirubin 0.2 AST 22 ALT 7 Alkaline Phosphata se 111 Troponin I 6 Hour 52.54 H Troponin I Hi Sens Del 8.54 Troponin T Baselin e Troponin T 120 Min [place] Troponin T Total Protein 5.9 L Albumin 2.7 L Globulin 3.2 Urine Color Urine Appearance Urine pH Ur Specific Gravit y Urine Protein Urine Glucose (UA) Urine Ketones Urine Occult Blood Urine Nitrate Urine Bilirubin Urine Urobilinogen Ur Leukocyte Saskia ase Urine RBC Urine WBC Ur Squamous Epith Cells Urine Bacteria Urine Mucus Ur Random Urea Nit rogn Urine Creatinine Urine Opiates Scre en Ur Barbiturates Sc reen Ur Phencyclidine S crn Ur Amphetamines Sc reen U Benzodiazepines Scrn Urine Cocaine Scre en U Marijuana (THC) Screen 04/26/19 04/26/19 04/26/19 16:54 15:25 15:25 WBC RBC Hgb Hct MCV MCH MCHC RDW Plt Count MPV Neut % (Auto) Lymph % (Auto) [place]corn % (Auto) Eos % (Auto) Baso % (Auto) Neut # (Auto) Lymph # (Auto) Alcorn # (Auto) Eos # (Auto) Baso # (Auto) Nucleated RBC % (a uto) Nucleated RBCs # Sodium Potassium Chloride Carbon Dioxide Anion Gap BUN Creatinine GFR Calculation Glucose Calcium Total Bilirubin AST ALT Alkaline Phosphata se Troponin I 6 Hour Troponin I Hi Sens Del Troponin T Baselin e Troponin T 120 Min [place] 61.51 H Delta Troponin T 17.51 H* Total Protein Albumin Globulin Urine Color Urine Appearance Urine pH Ur Specific Gravit y Urine Protein Urine Glucose (UA) Urine Ketones Urine Occult Blood Urine Nitrate Urine Bilirubin Urine Urobilinogen Ur Leukocyte Saskia ase Urine RBC Urine WBC Ur Squamous Epith Cells Urine Bacteria Urine Mucus Ur Random Urea Nit rogn 162 Urine Creatinine 27 L Urine Opiates Scre en Ur Barbiturates Sc reen Ur Phencyclidine S crn Ur Amphetamines Sc reen U Benzodiazepines Scrn Urine Cocaine Scre en U Marijuana (THC) Screen 04/26/19 04/26/19 04/26/19 15:25 15:25 14:53 WBC RBC Hgb Hct MCV MCH MCHC RDW Plt Count MPV Neut % (Auto) Lymph % (Auto) [place] % (Auto) Eos % (Auto) Baso % (Auto) Neut # (Auto) Lymph # (Auto) [place] # (Auto) Eos # (Auto) Baso # (Auto) Nucleated RBC % (a uto) Nucleated RBCs # Sodium Potassium Chloride Carbon Dioxide Anion Gap BUN Creatinine GFR Calculation Glucose Calcium Total Bilirubin AST ALT Alkaline Phosphata se Troponin I 6 Hour Troponin I Hi Sens Del Troponin T Baselin e 44 H Troponin T 120 Min [place] Troponin T Total Protein Albumin Globulin Urine Color Straw Urine Appearance Clear Urine pH 7 Ur Specific Gravit y 1.010 Urine Protein 3+ H Urine Glucose (UA) Norm Urine Ketones Negative Urine Occult Blood 2+ H Urine Nitrate Negative Urine Bilirubin Neg Urine Urobilinogen Norm Ur Leukocyte Saskia ase Negative Urine RBC 0-4 H Urine WBC None Ur Squamous Epith Cells None Urine Bacteria Trace Urine Mucus 1+ Ur Random Urea Nit rogn Urine Creatinine Urine Opiates Scre en Negative Ur Barbiturates Sc reen Negative Ur Phencyclidine S crn Negative Ur Amphetamines Sc reen Negative U Benzodiazepines Scrn Negative Urine Cocaine Scre en Negative U Marijuana (THC) Screen Negative 04/26/19 04/26/19 14:53 14:53 WBC 10.0 RBC 5.82 H Hgb 16.3 Hct 50.9 MCV 87.5 MCH 28.0 MCHC 32.0 RDW 13.5 Plt Count 343 MPV 9.1 Neut % (Auto) 66.6 Lymph % (Auto) 21.4 [place] % (Auto) 7.2 Eos % (Auto) 4.2 Baso % (Auto) 0.4 Neut # (Auto) 6.7 Lymph # (Auto) 2.1 [place] # (Auto) 0.7 Eos # (Auto) 0.4 Baso # (Auto) 0.0 Nucleated RBC % (a uto) 0 Nucleated RBCs # 0.0 Sodium 136 Potassium 4.1 Chloride 96 L Carbon Dioxide 32 H Anion Gap 12.1 BUN 27 H Creatinine 1.9 H GFR Calculation 39.9 L Glucose 120 H Calcium 9.6 Total Bilirubin 0.2 AST 22 ALT 8 Alkaline Phosphata se 130 Troponin I 6 Hour Troponin I Hi Sens Del Troponin T Baselin e Troponin T 120 Min [place] Troponin T Total Protein 6.6 Albumin 3.2 L Globulin 3.4 Urine Color Urine Appearance Urine pH Ur Specific Gravit y Urine Protein Urine Glucose (UA) Urine Ketones Urine Occult Blood Urine Nitrate Urine Bilirubin Urine Urobilinogen Ur Leukocyte [place] ase Urine RBC Urine WBC Ur Squamous Epith Cells Urine Bacteria Urine Mucus Ur Random Urea Nit rogn Urine Creatinine Urine Opiates Scre en Ur Barbiturates Sc reen Ur Phencyclidine S crn Ur Amphetamines Sc reen U Benzodiazepines Scrn Urine Cocaine Scre en U Marijuana (THC) Screen Vitals: Last Vital Signs Temp 98.4 F 04/27/19 08:00 Pulse 71 04/27/19 08:00 Resp 18 04/27/19 08:00 BP 200/148 04/27/19 07:56 Pulse Ox 96 04/27/19 08:00 Discharge Plan Discharge Patient Disposition: Left Against Medical Advice Condition: Serious Prescriptions: New metoprolol tartrate 25 mg tablet 25 mg PO BID Qty: 60 RF: 0 aspirin [Adult Low Dose Aspirin] 81 mg tablet,delayed release (DR/EC) 81 mg PO DAILY Qty: 30 RF: 0 Continued clonidine HCl 0.1 mg Tablet 0.1 mg PO TID RF: 0 methadone 40 mg Tablet,Soluble 80 mg PO DAILY RF: 0 Changed torsemide 20 mg Tablet 10 mg PO BID PRN (Reason: Edema) Qty: 0 RF: 0 Discontinued minoxidil 2.5 mg Tablet 5 mg PO BID RF: 0 Discharge Orders: Discharge Order (Routine); Ordered 04/27/19 Ordered By: Orlin Dickson Other Ambulatory Orders: Sestamibi Stress Test Request (Routine) Timeframe: 3 Days Facility: [facility] - Location: Cardiac Diagnostic Laboratory Ordered By: Orlin Dickson Hemoglobin A1C (Routine) Timeframe: 3 Days Facility: [facility] - Location: Lab - Main Lab Ordered By: Orlin Dickson Lipid Panel (Routine) Timeframe: 3 Days Facility: [facility] - Location: Lab - Main Lab Ordered By: Orlin Dickson Referrals: Primary, Care [Other] - 1-3 days Your, custodial maintenance worker [Other] - 4-7 days Discharge Diet: Cardiac and Low Salt Activity Restrictions/Additional Instructions: Please notify patient about pending stress test and laboratory studies. Please encourage him to follow-up with his primary care provider soon as possible. Encouraged to return to the emergency department at any time. Please instruct to follow orthostatic precautions, rise slowly from laying to sitting and sitting to standing. Sit down or lie down immediately in case feeling lightheaded. Monitor blood pressure 3 times daily. Minoxidil held for now as felt to be responsible for your episode of fainting. If your blood pressure remains persistently elevated, above 190 systolic, above 100 diastolic despite taking medications, please seek medical attention without delay. Echocardiogram results are pending. Stand Alone Forms: Against Medical Advice Print Language: Azeri Discharge Attestations Time Spent in Discharge Care*: greater than 30 min Quality Metrics Clinical Quality Measures During this hospital stay, did patient experience: None Coding Level of Care Code Acute Fabric Designer for Anam Fwd Diagnoses Chest tightness R07.89 Troponin level elevated R79.89 Syncope R55 Acute kidney injury superimposed on CKD N17.9; N18.9 History of drug abuse F19.11
--- NOTE | 2019-04-27 19:31 | USCV_ITS ---
Fabrice Kendrick Age: 38 Gender: M : 1980 Exam Date: 04/27/2019 07:07 Ordering Phys: Orlin Dickson MD Technologist: Veronica Webb Exam Location: [facility] [place] Indication: Abnormal troponin, chest pain BP: 161 / 105 HR: 58 Rhythm: Sinus bradycardia Technical Quality: Adequate MEASUREMENTS (Male / Female) Normal Values 2D ECHO LV Diastolic Diameter PLAX 4.5 cm 4.2 - 5.9 / 3.9 - 5.3 cm LV Systolic Diameter PLAX 2.5 cm LV Chamber Size 3.8 cm IVS Diastolic Thickness 2.0 cm 0.6 - 1.0 / 0.6 - 0.9 cm IVS Systolic Thickness 2.0 cm LVPW Diastolic Thickness 1.1 cm 0.6 - 1.0 / 0.6 - 0.9 cm LVPW Systolic Thickness 2.0 cm RV Chamber Size 3.3 cm LVOT Diameter 2.1 cm LV Ejection Fraction 2D Teich 76.0 % LV Ejection Fraction MOD 2C 70.3 % LV Ejection Fraction 2C AL 68.7 % LA Diameter 4.7 cm LA Width 3.6 cm LA Height 4.8 cm RA Width 3.7 cm RA Height 4.5 cm Aorta at Sinotubular Diameter 3.2 cm M-MODE LV Diastolic Diameter MM 5.6 cm 4.2 - 5.9 / 3.9 - 5.3 cm LV Systolic Diameter MM 3.5 cm LV Ejection Fraction MM Teich 67.6 % IVS Diastolic Thickness MM 1.3 cm 0.6 - 1.0 / 0.6 - 0.9 cm IVS Systolic Thickness MM 1.9 cm LVPW Diastolic Thickness MM 1.3 cm 0.6 - 1.0 / 0.6 - 0.9 cm LVPW Systolic Thickness MM 2.0 cm RV Diastolic Diameter MM 1.2 cm Aortic Annulus Diameter 3.6 cm LA Ao Ratio MM 1.3 MV E Point Septal Separation 1.0 cm DOPPLER AV Peak Velocity 125.0 cm/s LVOT Peak Velocity 111.0 cm/s AV Area Cont Eq vti 3.1 cm squared AV Area Cont Eq pk 3.1 cm squared MV Area PHT 2.1 cm squared Mitral E to A Ratio 0.9 MV E' Velocity 10.0 cm/s Mitral E to MV E' Ratio 11.0 Mitral E to LV E' Lateral Ratio 8.1 Mitral E to LV E' Septal Ratio 17.1 TV Peak E Velocity 67.0 cm/s Right Atrial Pressure 3.0 mmHg PV Peak Velocity 75.0 cm/s RV Acceleration Time 0.1 s RV Ejection Time 0.3 s RV AcT/ET 0.4 FINDINGS Left Ventricle Normal left ventricular size, systolic function and wall thickness, with no regional wall motion abnormalities. Grade I/IV diastolic dysfunction (abnormal relaxation filling pattern), normal to mildly elevated filling pressures. Left ventricular ejection fraction is estimated at 60 %. Right Ventricle The right ventricle is normal in size and function. Right Atrium The right atrium is normal in size. Left Atrium The left atrium is normal in size. Mitral Valve Structurally normal mitral valve without significant stenosis or prolapse. There is no mitral regurgitation. Aortic Valve Structurally normal aortic valve without significant sclerosis or stenosis. There is no aortic regurgitation. Tricuspid Valve Structurally normal tricuspid valve without significant stenosis or regurgitation. Pulmonary artery systolic pressure is normal. Pulmonic Valve Structurally normal pulmonic valve without significant stenosis. There is no pulmonic regurgitation. Pericardium Normal pericardium without effusion. Aorta Normal ascending aorta dimension. CONCLUSIONS Normal left ventricular size, systolic function and wall thickness, with no regional wall motion abnormalities. Grade I/IV diastolic dysfunction (abnormal relaxation filling pattern), normal to mildly elevated filling pressures. Left ventricular ejection fraction is estimated at 60 %. There are no prior echocardiogram studies to compare. Dr. Juan Carlos Herrera MD (Electronically Signed) Final Date: 27 April 2019 11:11 S
== END 2019-04-27 08:30 | disposition left against medical advice (07) ==
LOC: ER 18:26 → CSU 18:27
PROVIDERS: Nurse Practitioner Family; Admitting Provider Internal Medicine; Emergency Provider Emergency Medicine; Visit Provider Internal Medicine
DX: R55 Syncope and collapse (principal); R07.89 Other chest pain; R79.89 Other specified abnormal findings of blood chemistry; F19.11 Other psychoactive substance abuse, in remission; Z82.49 Family history of ischemic heart disease and other diseases of the circulatory system; I12.9 Hypertensive chronic kidney disease with stage 1 through stage 4 chronic kidney disease, or unspecified chronic kidney disease; N18.9 Chronic kidney disease, unspecified
CPT/HCPCS: 12345; 36415; 70450; 71045; 80053; 80307; 81001; 82570; 84484; 84540; 85025; 93005; 93306; 96360; 96361; 96374; 96375; 99283; 99285; G0378; J1200; J2765; J7030

== ENCOUNTER 2019-10-07 11:08 | Emergency (ER) | payer MEDICAID, SELFPAY ==
[2019-10-07] VITALS (8 sets, daily range): BP systolic 117–227; BP diastolic 79–159; PULSE 75–107; RESP 14–18; TEMP 36.6; O2SAT 97–98
--- NOTE | 2019-10-07 12:41 | W.ED.GENADLT ---
HPI - General Adult General: Chief complaint: General Medical Stated complaint: high bp Time Seen by Provider: 10/07/19 12:40 History of Present Illness: HPI narrative: 39-year-old male comes in complaining of elevated blood pressure and headache. He ran out of blood pressure medicines a couple weeks ago specifically his clonidine. 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 He does get seen at [facility] [place] where they refill his methadone regularly. His blood pressure is markedly elevated. He has had this in the past he has a headache today denies any chest pain. Onset (ago): week(s) Location: head Radiation: non-radiation Severity: moderate Quality: stabbing Pain Consistency: constant Relieving factors: none Exacerbating factors: none Associated symptoms: Reports headache(s); Deny chest pain, confusion, cough, diaphoresis, dyspnea, nausea, rash or vomiting Treatments prior to arrival: other (Patient tried some herbal medications with no relief) Review of Systems Const: Denies: diaphoresis ENMT: Denies: throat pain, ear or mastoid pain, nasal discharge or nasal congestion Card: Denies: chest pain Resp: Denies: dyspnea, productive cough or non-productive cough GI: Denies: abdominal pain, nausea, vomiting, hematemesis, coffee ground emesis, diarrhea, constipation, bloating, hematochezia or melena : Denies: flank pain, dysuria, urinary frequency or urinary urgency Skin/Breast: Denies: rash or pruritus Neuro: Reports: headache(s); Denies: confusion PFSH ED PFSH: Medical History Abscess of leg Acute kidney injury superimposed on CKD H/O drainage of abscess History of drug abuse Surgical History History of appendectomy Family History Mother Bladder cancer Father CHF (congestive heart failure) Social History Smoking and tobacco status: never smoked Alcohol intake: never Marital status: Current occupational status: employed Current occupation: Runs a business Physical Exam Const: COMMON NORMALS: no acute distress GENERAL APPEARANCE: cooperative and comfortable ORIENTATION/CONSCIOUSNESS: Yes awake, Yes oriented to person, Yes oriented to place and Yes oriented to time HENMT: COMMON NORMALS: normocephalic, atraumatic, hearing grossly normal bilaterally, external ears normal, EAC's normal, TM's normal bilaterally, Normal nasal mucous membranes and turbinates present, moist oral mucous membranes and oropharynx normal HEAD & SCALP: normocephalic and atraumatic NOSE: Normal nasal mucous membranes and turbinates present EXTERNAL EAR: Yes external ears normal EXTERNAL AUDITORY CANAL: EAC's normal TYMPANIC MEMBRANE: TM's normal bilaterally Eye: COMMON NORMALS: Equal, round and reactive pupils present, EOMs intact bilaterally, conjunctivae normal and no scleral icterus CONJUNCTIVA: Yes conjunctivae normal PUPIL: Yes Equal, round and reactive pupils present Neck/C-Spine: COMMON NORMALS: full ROM, no lymphadenopathy, supple and no JVD Lymph: LYMPHATIC: no lymphadenopathy noted and no lymphedema noted Resp: COMMON NORMALS: normal respiratory effort, No retractions, No use of accessory muscles and clear to auscultation bilaterally AUSCULTATION: clear to auscultation bilaterally Cardio: COMMON NORMALS: no JVD, regular rate, regular rhythm and No murmurs present (Cardio) RATE: regular rate RHYTHM: regular rhythm GI: COMMON NORMALS: Soft to palpation and No hepatosplenomegaly present AUSCULTATION: Yes normoactive bowel sounds PALPATION: Yes Soft to palpation, No Tenderness to palpation present (GI), No Guarding due to palpation present (GI) and Yes No hepatosplenomegaly present Extremity: COMMON NORMALS: normal to inspection, capillary refill normal, no clubbing, cyanosis or edema, no calf tenderness and no pedal edema Neuro: SENSORIUM/ORIENTATION: Yes oriented to person, Yes oriented to place and Yes oriented to time Skin: COMMON NORMALS: no rashes or lesions noted GENERAL SKIN EXAM: no rashes or lesions noted Course Vital Signs: Vital signs: Vital Signs Temperature 97.8 F 10/07/19 11:25 Pulse Rate 75 10/07/19 15:26 Respiratory Rate 16 10/07/19 15:26 Blood Pressure 120/83 10/07/19 15:26 Pulse Oximetry 97 10/07/19 15:26 MDM - General Adult MDM Narrative: Medical decision making narrative: We will stop the clonidine as he is getting some rebound hypertension from that we will change him instead to metoprolol and amlodipine. I did give him some hydralazine and clonidine here to relieve his immediate blood pressure as well as amlodipine and metoprolol he needs to get set up with a primary care doctor sometime in the near future to follow-up his blood pressure and he will have to reestablish with a outside plant supervisor. Lab Data: Labs: Lab Results 10/07/19 10/07/19 Range/Units 12:53 12:53 WBC 11.2 H (4.0-10.0) 10^3/ uL RBC 5.79 H (4.1-5.3) 10^6/u L Hgb 16.6 (11.7-16.6) g/dL Hct 51.3 (42.0-52.0) % MCV 88.6 (80-94) fL MCH 28.7 (28.0-34.0) pg MCHC 32.4 (30.0-36.0) g/dL RDW 13.7 (12.1-15.1) % Plt Count 358 (130-400) 10^3/c mm MPV 9.1 (7.4-10.4) fL Neut % (Auto) 84.8 % Lymph % (Auto) 10.8 % [place] % (Auto) 3.3 % Eos % (Auto) 0.6 % Baso % (Auto) 0.3 % Neut # (Auto) 9.5 H (1.8-7.7) 10^3/u L Lymph # (Auto) 1.2 (0.8-4.8) 10^3/u L [place] # (Auto) 0.4 (0.2-0.9) 10^3/u L Eos # (Auto) 0.1 (0.0-0.8) 10^3/u L Baso # (Auto) 0.0 (0.0-0.1) 10^3/u L Nucleated RBC % (a uto) 0 % Nucleated RBCs # 0.0 /100WBC Sodium 138 (136-145) mmol/L Potassium 4.5 (3.5-5.1) mmol/L Chloride 98 (98-107) mmol/L Carbon Dioxide 28 (22-29) mmol/L Anion Gap 16.5 (5-19) BUN 22 H (6-20) mg/dL Creatinine 1.7 H (0.7-1.2) mg/dL GFR Calculation 45.1 L (90-130) mL/min Glucose 100 (65-115) mg/dL Calculated Osmolal ity 283 L (285-295) mOsm/k g Calcium 10.2 (8.5-10.5) mg/dL Discharge Plan Discharge Patient Disposition: Home, Self-Care Clinical Impression: Accelerated essential hypertension, CKD (chronic kidney disease) Condition: Stable Prescriptions: New metoprolol succinate 25 mg tablet extended release 24 hr 25 mg PO DAILY Qty: 30 RF: 0 Discontinued clonidine HCl 0.1 mg Tablet 0.1 mg PO TID RF: 0 No Action losartan 50 mg tablet 50 mg PO DAILY Qty: 30 RF: 0 methadone 40 mg Tablet,Soluble 80 mg PO DAILY RF: 0 Discharge Orders: Discharge Order (Routine); Ordered 10/07/19 Ordered By: Familia Bundy Discharge Diet: Usual diet Discharge Activity: Resume usual activity Activity Restrictions/Additional Instructions: Case management will call to make an appointment with a primary care physician. Primary care can refer you to a new outside plant supervisor. Discharge Date/Time: 10/07/19 15:27 Coding Level of Care Code ED Emergency Care Attendant for Cathryng Fwd Exam Comprehensive
[2019-10-07 12:59] LABS: Basophils % 0.3 %; Eosinophils # 0.1 10^3/uL (0.0-0.8); Eosinophils % 0.6 %; Hematocrit 51.3 % (42.0-52.0); Hemoglobin 16.6 g/dL (11.7-16.6); Lymphocytes # 1.2 10^3/uL (0.8-4.8); Lymphocytes % 10.8 %; Mean Corpuscular HGB Conc 32.4 g/dL (30.0-36.0); Mean Corpuscular Hemoglobin 28.7 pg (28.0-34.0); Mean Corpuscular Volume 88.6 fL (80-94); Mean Platelet Volume 9.1 fL (7.4-10.4); Monocytes # 0.4 10^3/uL (0.2-0.9); Monocytes % 3.3 %; Neutrophils # 9.5 10^3/uL (1.8-7.7); Neutrophils % 84.8 %; Nucleated Red Blood Cells % 0 %; Platelet Count 358 10^3/cmm (130-400); Red Blood Count 5.79 10^6/uL (4.1-5.3); Red Cell Distribution Width 13.7 % (12.1-15.1); White Blood Count 11.2 10^3/uL (4.0-10.0)
[2019-10-07 13:19] LABS: Anion Gap 16.5 (5-19); Blood Urea Nitrogen 22 mg/dL (6-20); Calcium 10.2 mg/dL (8.5-10.5); Carbon Dioxide 28 mmol/L (22-29); Chloride 98 mmol/L (98-107); Glomerular Filtration Rate 45.1 mL/min (90-130); Glucose 100 mg/dL (65-115); Osmolality Calculated 283 mOsm/kg (285-295); Potassium 4.5 mmol/L (3.5-5.1); Sodium 138 mmol/L (136-145)
[2019-10-07] MEDS: metoprolol succinate ER (24 HR) 25 mg Tablet PO (13:48)
[2019-10-07] MEDS: amlodipine 10 mg Tablet PO (13:48)
--- NOTE | 2019-10-07 13:53 | DCPLANNER ---
cost accounting manager was asked to speak with patient about getting established with a primary care physician. cost accounting manager spoke with patient, he stated that he would like to get established with a provider. cost accounting manager called the office of [facility], Tami Biggs, spoke with Karen, gave clinic patients information. A follow up appointment is scheduled for Monday, 2019 at 10:00 with ELECTRIC[facility] TRADER, Kalyan. cost accounting manager informed patient of the appointment information.
--- NOTE | 2019-10-07 14:11 | PC.NURSE ---
Read and agree with assessment
[2019-10-07] MEDS: hyDRALAzine 20 mg/mL INJ 1 mL 10 MG IVP (14:30)
[2019-10-07] MEDS: ondansetron 2 mg/ML SDV 2 mL 4 MG IVP (14:30)
[2019-10-07] MEDS: cloNIDine 0.1 mg Tablet PO (15:04)
--- NOTE | 2019-10-10 11:01 | DCPLANNER ---
Patient did attend appointment scheduled for 10.09.19 with Tami Biggs for primary care.
== END 2019-10-07 15:27 | disposition home or self-care (01) ==
PROVIDERS: Emergency Provider Family Medicine
DX: I12.9 Hypertensive chronic kidney disease with stage 1 through stage 4 chronic kidney disease, or unspecified chronic kidney disease (principal); N18.9 Chronic kidney disease, unspecified
CPT/HCPCS: 12345; 36415; 80048; 85025; 96374; 96375; 99283; J0360; J2405

== ENCOUNTER → 2020-02-10 16:02 | Outpatient (BNVA) | payer MEDICAID, SELFPAY | PROVIDERS: PCP Nurse Practitioner Family; Visit Provider Nurse Practitioner Family | DX: R53.83 Other fatigue (principal); I10 Essential (primary) hypertension; N18.9 Chronic kidney disease, unspecified; F19.11 Other psychoactive substance abuse, in remission | CPT/HCPCS: 80053; 85025 ==

== ENCOUNTER → 2020-09-11 10:30 | Outpatient (BNVA) | payer BC, MEDICAID, SELFPAY | PROVIDERS: PCP Nurse Practitioner Family; Visit Provider Nurse Practitioner Family | DX: I10 Essential (primary) hypertension (principal); B19.20 Unspecified viral hepatitis C without hepatic coma; N18.31 Chronic kidney disease, stage 3a; F32.9 Major depressive disorder, single episode, unspecified; Z79.899 Other long term (current) drug therapy | CPT/HCPCS: 80053; 82105; 85025; 87522; 87902 ==

== ENCOUNTER → 2021-05-17 15:42 | Outpatient (BNVA) | payer BC, SELFPAY | PROVIDERS: PCP Nurse Practitioner Family; Visit Provider Nurse Practitioner Family | DX: M79.641 Pain in right hand (principal); M79.642 Pain in left hand; R60.9 Edema, unspecified; B19.20 Unspecified viral hepatitis C without hepatic coma; N18.31 Chronic kidney disease, stage 3a; I12.9 Hypertensive chronic kidney disease with stage 1 through stage 4 chronic kidney disease, or unspecified chronic kidney disease | CPT/HCPCS: 80053; 84550; 85025; 85651; 86140; 86431 ==

== ENCOUNTER → 2021-05-18 15:02 | Outpatient (BNVA) | payer BC, SELFPAY | PROVIDERS: PCP Nurse Practitioner Family; Visit Provider Nurse Practitioner Family | DX: I12.9 Hypertensive chronic kidney disease with stage 1 through stage 4 chronic kidney disease, or unspecified chronic kidney disease (principal); B19.20 Unspecified viral hepatitis C without hepatic coma; N18.4 Chronic kidney disease, stage 4 (severe); R60.0 Localized edema | CPT/HCPCS: 81003; 82043; 82595; 86160; 86162; 86200; 86225; 86235; 86255; 86376 ==

== ENCOUNTER 2021-05-27 16:27 | Outpatient (CLI) | payer BC, MEDICAID, SELFPAY ==
[2021-05-27 17:31] LABS: Alanine Aminotransferase 22 U/L (0-41); Albumin Level 4.4 g/dL (3.5-5.2); Alkaline Phosphatase 127 IU/L (40-130); Anion Gap 14.7 (5-19); Aspartate Amino Transferase 35 U/L (0-40); Blood Urea Nitrogen 46 mg/dL (6-20); Calcium 9.8 mg/dL (8.5-10.5); Carbon Dioxide 24 mmol/L (22-29); Chloride 101 mmol/L (98-107); Globulin 3.6 g/dL (1.3-4.6); Glomerular Filtration Rate 31.7 mL/min (90-130); Glucose 101 mg/dL (65-115); Osmolality Calculated 292 mOsm/kg (285-295); Potassium 4.7 mmol/L (3.5-5.1); Sodium 135 mmol/L (136-145); Total Bilirubin 0.3 mg/dL (0.15-1.2)
== END 2021-05-27 16:28 | disposition home or self-care (01) ==
PROVIDERS: PCP Nurse Practitioner Family; Visit Provider Nurse Practitioner Family
DX: N18.31 Chronic kidney disease, stage 3a (principal)
CPT/HCPCS: 80053

== ENCOUNTER 2021-06-15 06:51 | Outpatient (CLI) | payer BC, MEDICAID, SELFPAY ==
--- NOTE | 2021-06-15 07:15 | US_ITS ---
WS: [id number] Complete ABDOMINAL ULTRASOUND HISTORY: Hepatitis C COMPARISON: 01/09/2017 Liver: 17.6 cm in length. Liver is mildly enlarged. No mass or bile duct dilatation. No significant h epatic steatosis. Portal Vein: Normal hepatopetal flow with monophasic waveform. Gallbladder: Normally distended with no gallstones, wall thickening or pericholecystic fluid. Gallbladder wall thickness: 0.3 cm. Pancreas: Poorly visualized. Obscured by bowel gas. CBD: 0.4 cm. Right kidney: 10.1 cm x 4.0 cm x 4.7 cm. No mass, cortical thickening or hydronephrosis. Left kidney: 10.4 cm x 4.1 cm x 5.0 cm. No mass, cortical thickening or hydronephrosis. Spleen: Normal size and echogenicity. Abdominal aorta and IVC are within normal limits. No ascites. US/US abdomen complete* [id number] IMPRESSION: 1. Normal gallbladder. 2. Mild hepatomegaly. Similar to the prior study of 01/09/2017.
== END 2021-06-15 06:52 | disposition home or self-care (01) ==
LOC: RAD 06:52
PROVIDERS: PCP Nurse Practitioner Family; Visit Provider Nurse Practitioner Family
DX: I12.9 Hypertensive chronic kidney disease with stage 1 through stage 4 chronic kidney disease, or unspecified chronic kidney disease (principal); N18.9 Chronic kidney disease, unspecified; R16.0 Hepatomegaly, not elsewhere classified
CPT/HCPCS: 76700

== ENCOUNTER 2023-01-04 18:16 | Emergency (ER) | payer BC, MEDICAID, SELFPAY ==
[2023-01-04 18:25] VITALS: BP 202/127; PULSE 70; RESP 18; TEMP 36.7; O2SAT 97; BMI 28.3
--- NOTE | 2023-01-04 18:48 | ECG_ITS ---
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 Measurements Intervals [place] Rate: 59 P: 33 [place]: 144 QRS: -21 QRSD: 105 T: 4 QT: 433 QTc: 429 Interpretive Statements SINUS BRADYCARDIA LEFT VENTRICULAR HYPERTROPHY AND ST-T CHANGE [VOLTAGE CRITERIA PLUS ST/T ABNORMALITY] POSSIBLE SEPTAL MYOCARDIAL INFARCTION , OF INDETERMINATE AGE [30 ms Q WAVE IN V1/V2] Compared to ECG 04/27/2019 00:41:02 Myocardial infarct finding now present Sinus rhythm no longer present ST (T wave) deviation still present Electronically Signed On 01-04-2023 20:54:52 CDT by Jose Hill M.D. [id number]
--- NOTE | 2023-01-04 18:50 | ED_ITS ---
HPI - Headache General: Chief Complaint: Headache Stated Complaint: neck and head pain, high bp Time Seen by Provider: 01/04/23 18:38 Source: patient Mode of arrival: ambulatory Limitations: no limitations History of Present Illness: 42-year-old male states he has a long history of hypertension. He states he is on losartan but has been out of his meds for months. States today he is feeling states weird along with some mild headache states headaches currently 2 out of 10 states he gets like this when his blood pressure high his blood pressure is 202/127 he was sent here from urgent care for his high blood pressure he denies any syncopal events denies any severe headaches denies any chest pain. Associated symptoms: Deny chest pain, fever(s), nausea or vomiting Review of Systems Const: Denies: fever(s), chills, body aches or change in appetite Eyes: Denies: blurry vision or eye discomfort ENMT: Denies: throat pain or dental pain Card: Denies: chest pain Resp: Denies: dyspnea GI: Denies: abdominal pain, nausea, vomiting or diarrhea Musc: Denies: neck pain or back pain Neuro: Reports: headache(s) [facility] ED PFSH: Medical History (Updated 01/04/23 @ 19:37 by Francis Modi MD) Abscess of leg Acute kidney injury superimposed on CKD H/O drainage of abscess History of drug abuse Surgical History History of appendectomy Family History Mother Bladder cancer Father CHF (congestive heart failure) Social History Smoking and tobacco status: never smoked Alcohol intake: never Substance/Drug Use: former Date of last use: Currently on methadone Household members: spouse and children Marital status: Current occupational status: employed Current occupation: Runs a business Sexually active: Yes Do you think of yourself as: Straight/Heterosexual Current gender identity: Male Physical Exam Const: COMMON NORMALS: no acute distress, patient oriented x3 and healthy appearing HENMT: COMMON NORMALS: normocephalic and atraumatic HEAD & SCALP: normocephalic and atraumatic Eye: COMMON NORMALS: Equal, round and reactive pupils present and EOMs intact bilaterally PUPIL: Yes Equal, round and reactive pupils present Neck/C-Spine: COMMON NORMALS: full ROM, supple and no meningeal signs Chest: COMMONS NORMALS: normal inspection of the chest and normal palpation of entire chest wall Resp: COMMON NORMALS: normal respiratory effort, No retractions, No use of acc essory muscles and clear to auscultation bilaterally AUSCULTATION: clear to auscultation bilaterally Cardio: COMMON NORMALS: regular rate, regular rhythm and No murmurs present (Cardio) RATE: regular rate RHYTHM: regular rhythm GI: COMMON NORMALS: Normal to inspection, nondistended, normoactive bowel sounds present, Soft to palpation, non-tender and no masses PALPATION: Yes Soft to palpation Extremity: COMMON NORMALS: normal to inspection and full ROM Neuro: COMMON NORMALS: patient oriented x3, moves all extremities and no focal motor deficits MENINGEAL SIGNS: Yes no meningeal signs Psych: COMMON NORMALS: mental status grossly normal, Normal thought process present and cooperative THOUGHT PROCESS: Normal thought process present Skin: COMMON NORMALS: no rashes or lesions noted and no wounds GENERAL SKIN EXAM: no rashes or lesions noted Course Vital Signs: Vital signs: Vital Signs Temperature 98.1 F 01/04/23 18:25 Pulse Rate 62 01/04/23 19:09 Respiratory Rate 18 01/04/23 19:09 Blood Pressure 178/113 01/04/23 19:09 Pulse Oximetry 96 01/04/23 19:09 Oxygen Delivery Me thod Room Air 01/04/23 19:09 MDM - Headache Medical Decision Making Patient presents with hypertension likely due to noncompliance has not taken his meds in months mild headache likely from hypertension he has no signs of subarachnoid hemorrhage here. He feels much improved now his blood pressures been lowered here we will start him back on his losartan he is to follow-up with his PCP and return if worsening he understands agrees to plan. Medical Records I reviewed the patient's medical records. Lab Data I reviewed the patient's lab results. 01/04/23 19:01 01/04/23 19:01 Laboratory Results WBC 7.79 10^3/uL (3.29-11.43) 01/04/23 19:01 RBC 4.63 10^6/uL (3.85-5.65) 01/04/23 19: Hgb 13.60 g/dL (11.27-16.99) 01/04/23 19: Hct 42.3 % (37-53) 01/04/23 19: MCV 91.4 fl (82-101) 01/04/23 19: MCH 29.4 pg (27-33) 01/04/23 19: MCHC 32.2 g/dL (30-55) 01/04/23 19: RDW 14.2 % (12.1-15.1) 01/04/23 19: Plt Count 257 10^3/cmm (157-399) 01/04/23 19: MPV 9.9 fL (7.4-10.4) 01/04/23 19: Neut % (Auto) 48.1 % 01/04/23: Lymph % (Auto) 33.1 % 01/04/23 19: [place] % (Auto) 12.5 % 01/04/23 19: Eos % (Auto) 5.4 % 01/04/23 19: Baso % (Auto) 0.8 % 01/04/23 19: Neut # (Auto) 3.75 10^3/uL (1.8-7.7) 01/04/23 19: Lymph # (Auto) 2.6 10^3/uL (0.8-4.8) 01/04/23 19:01 [place] # (Auto) 1.0 10^3/uL (0.2-0.9) H 01/04/23 19: Eos # (Auto) 0.4 10^3/uL (0.0-0.8) 01/04/23 19: Baso # (Auto) 0.1 10^3/uL (0.0-0.1) 01/04/23 19: Nucleated RBC % (auto) 0 % 01/04/23 19: Nucleated RBCs # 0.0 /100WBC 01/04/23 19: Sodium 139 mmol/L (136-145) 01/04/23 19: Potassium 4.3 mmol/L (3.5-5.1) 01/04/23 19: Chloride 103 mmol/L (98-107) 01/04/23 19:01 Carbon Dioxide 30 mmol/L (22-29) H 01/04/23 19:01 Anion Gap 10.3 (5-19) 01/04/23 19:01 BUN 20 mg/dL (6-20) 01/04/23 19:01 Creatinine 2.0 mg/dL (0.7-1.2) H 01/04/23 19:01 GFR Calculation 36.8 mL/min (90-130) L 01/04/23 19:01 Glucose 95 mg/dL (65-115) 01/04/23 19:01 Calculated Osmolality 290 mOsm/kg (285-295) 01/04/23 19:01 Calcium 8.9 mg/dL (8.5-10.5) 01/04/23 19:01 Total Bilirubin 0.4 mg/dL (0.15-1.2) 01/04/23 19:01 AST 49 U/L (0-40) H 01/04/23 19:01 ALT 30 U/L (0-41) 01/04/23 19:01 Alkaline Phosphatase 91 U/L (40-130) 01/04/23 19:01 Total Protein 6.9 g/dL (6.6-8.7) 01/04/23 19:01 Albumin 3.9 g/dL (3.5-5.2) 01/04/23 19:01 Globulin 3.0 g/dL (1.3-4.6) 01/04/23 19:01 No radiology studies performed this visit EKG Data EKG 1: I personally reviewed and interpreted this EKG as follows: EKG interpretation date: 01/04/23 EKG interpretation time: 18:51 Interpretation: sinus tristan hr [address] elevation, does have LVH qrs 105 qtc 431 Discharge Plan Discharge Patient Disposition: Home Clinical Impression: Headache, Hypertension Condition: Stable Prescriptions: New losartan 100 mg tablet 100 mg PO DAILY Qty: 30 0RF No Action methadone 40 mg tablet,soluble 100 mg PO DAILY Discharge Orders: Discharge ED (Routine); Ordered 01/04/23 Ordered By: Francis Modi Referrals: Mina Jernigan MD [Primary Care Provider] - 1-3 days Discharge Diet: Advance as tolerated Discharge Activity: Resume usual activity Patient Instructions: Hypertension (ED) Coding Level of Care Code ED Health Education Coordinator for Chg Fwd
[2023-01-04 19:06] LABS: Basophils # 0.1 10^3/uL (0.0-0.1); Basophils % 0.8 %; Eosinophils # 0.4 10^3/uL (0.0-0.8); Eosinophils % 5.4 %; Hematocrit 42.3 % (37-53); Lymphocytes # 2.6 10^3/uL (0.8-4.8); Lymphocytes % 33.1 %; Mean Corpuscular HGB Conc 32.2 g/dL (30-55); Mean Corpuscular Hemoglobin 29.4 pg (27-33); Mean Corpuscular Volume 91.4 fl (82-101); Mean Platelet Volume 9.9 fL (7.4-10.4); Monocytes % 12.5 %; Neutrophils # 3.75 10^3/uL (1.8-7.7); Neutrophils % 48.1 %; Nucleated Red Blood Cells % 0 %; Platelet Count 257 10^3/cmm (157-399); Red Blood Count 4.63 10^6/uL (3.85-5.65); Red Cell Distribution Width 14.2 % (12.1-15.1); White Blood Count 7.79 10^3/uL (3.29-11.43)
[2023-01-04] MEDS: hyDRALAzine 20 mg/mL INJ 1 mL 10 MG IVP (19:06)
[2023-01-04 19:09] VITALS: BP 178/113; PULSE 62; RESP 18; O2SAT 96
[2023-01-04 19:22] LABS: Alanine Aminotransferase 30 U/L (0-41); Albumin Level 3.9 g/dL (3.5-5.2); Alkaline Phosphatase 91 U/L (40-130); Anion Gap 10.3 (5-19); Aspartate Amino Transferase 49 U/L (0-40); Blood Urea Nitrogen 20 mg/dL (6-20); Calcium 8.9 mg/dL (8.5-10.5); Carbon Dioxide 30 mmol/L (22-29); Chloride 103 mmol/L (98-107); Glomerular Filtration Rate 36.8 mL/min (90-130); Glucose 95 mg/dL (65-115); Osmolality Calculated 290 mOsm/kg (285-295); Potassium 4.3 mmol/L (3.5-5.1); Sodium 139 mmol/L (136-145); Total Bilirubin 0.4 mg/dL (0.15-1.2); Total Protein 6.9 g/dL (6.6-8.7)
[2023-01-04 19:41] VITALS: BP 173/109; PULSE 58; RESP 18; O2SAT 98
[2023-01-04 19:45] VITALS: BP 173/109
[2023-01-04] MEDS: losartan 50 mg Tablet 100 MG PO (19:45)
[2023-01-04 19:46] VITALS: BP 173/109; PULSE 68; RESP 18; O2SAT 99
== END 2023-01-04 19:50 | disposition home or self-care (01) ==
PROVIDERS: Emergency Provider Emergency Medicine; PCP Family Medicine
DX: R51.9 Headache, unspecified (principal); I10 Essential (primary) hypertension
CPT/HCPCS: 80053; 85025; 93005; 96374; 99284; J0360

== ENCOUNTER → 2023-02-24 15:28 | Outpatient (BNVA) | payer BC, MEDICAID, SELFPAY | PROVIDERS: PCP Family Medicine; Visit Provider Family Medicine | DX: I10 Essential (primary) hypertension (principal) | CPT/HCPCS: 80053; 80061; 81000; 84443; 85025 ==

== ENCOUNTER 2023-03-09 13:48 | Outpatient (CLI) | payer BC, MEDICAID, SELFPAY ==
--- NOTE | 2023-03-09 13:57 | USCV_ITS ---
Fabrice Kendrick Age: 42 Gender: M : 1980 Exam Date: 03/09/2023 14:20 Ordering Phys: Mina Jernigan MD Technologist: GEORGE Exam Location: [facility] – [place] Indication: HEART FAILURE BP: 130 / 95 HR: 64 Rhythm: Sinus Technical Quality: Adequate MEASUREMENTS (Male / Female) Normal Values 2D ECHO LVOT Diameter 2.0 cm LV Ejection Fraction MOD 2C 62.2 % LV Ejection Fraction 2C AL 62.8 % LA Diameter 2.7 cm LA Width 3.0 cm LA Height 4.3 cm RA Width 3.7 cm RA Height 4.0 cm Aorta at Sinotubular Diameter 2.2 cm IVC Diameter 2.1 cm M-MODE Aortic Annulus Diameter 3.0 cm LA Ao Ratio MM 0.9 MV E Point Septal Separation 0.6 cm DOPPLER AV Peak Velocity 141.0 cm/s LVOT Peak Velocity 105.0 cm/s AV Area Cont Eq vti 2.5 cm squared AV Area Cont Eq pk 2.4 cm squared MV Peak Velocity 81.0 cm/s MV Area PHT 4.5 cm squared Mitral E to A Ratio 0.8 MV E' Velocity 39.0 cm/s Mitral E to MV E' Ratio 6.6 Mitral E to LV E' Lateral Ratio 5.4 Mitral E to LV E' Septal Ratio 8.6 TR Peak Velocity 185.7 cm/s TR Peak Gradient 13.8 mmHg TR Mean Velocity 151.5 cm/s TR Mean Gradient 9.6 mmHg TR Velocity Time Integral 54.3 cm TV Peak E Velocity 53.0 cm/s Right Atrial Pressure 3.0 mmHg Pulmonary Artery Systolic Pressu 16.8 mmHg PV Peak Velocity 99.0 cm/s RV Acceleration Time 0.1 s RV Ejection Time 0.3 s RV AcT/ET 0.3 FINDINGS Left Ventricle Normal left ventricular size, systolic function and wall thickness, with no regional wall motion abnormalities. Left ventricular ejection fraction is estimated at 60%. Right Ventricle Normal right ventricular size and systolic function. Right Atrium Normal right atrial size. Left Atrium Normal left atrial size. Mitral Valve Structurally normal mitral valve. No mitral valve regurgitation. Aortic Valve Structurally normal trileaflet aortic valve. Tricuspid Valve Structurally normal tricuspid valve. Trace tricuspid valve regurgitation. Pulmonic Valve Structurally normal pulmonic valve. Trace pulmonary valve regurgitation. Pericardium No pericardial effusion. Aorta Normal size aortic root and proximal ascending aorta. IVC Normal IVC dimension with >50% respiratory change of the inferior vena cava. CONCLUSIONS Normal left ventricular systolic function. No LVH estimated LVEF normal at 60%. Normal chamber sizes. No significant valvular abnormality noted. Normal right heart and pulmonary pressures. Vibha Salazar MD (Electronically Signed) Final Date: 09 March 2023 15:49 S
--- NOTE | 2023-03-09 13:58 | USCV_ITS ---
Fabrice Kendrick Age: 42 Gender: M : 1980 Exam Date: 03/09/2023 14:06 Ordering Phys: Mina Jernigan MD Technologist: GEORGE [place]am [place] [facility] [place]: HTN Risk Factors: Previous Vascular Surgery: Right Brachial BP: / Left Brachial BP: / Right Left Velocity (cm/s) Spectral Plaque Velocity (cm/s) Spectral Plaque Syst/Diast Broadening Syst/Diast Broadening 91.30/ 23.30 Prox CCA 86.30 / 18.50 104.70/33.10 Mid CCA 86.30 / 23.40 91.70/ 24.60 Distal CCA 82.20 / 26.60 37.90/ 14.50 Prox ICA 83.80 / 22.40 81.80/ 34.50 Mid ICA 69.90 / 30.60 83.80/ 27.60 Distal ICA 55.00 / 22.30 66.00 ECA 76.30 0.80 ICA/CCA 0.97 Antegrade Vertebral Antegrade 46.50/ 18.80 cm/s 38.80/ 17.10 cm/s Tri Subclavian Tri 62.90 116.6 0 CONCLUSIONS Right ICA stenosis <50%. Mild atheromatous plaque right carotid bulb/ICA. Left ICA stenosis <50%. Mild atheromatous plaque left carotid bulb/ICA. Intimal thickening in the common carotid arteries and internal carotid arteries bilaterally. Normal antegrade Doppler flow noted in the right vertebral artery. Normal antegrade Doppler flow noted in the left vertebral artery. Russell Whitehead MD (Electronically Signed) Final Date: 09 March 2023 16:04 S
== END 2023-03-09 13:49 | disposition home or self-care (01) ==
LOC: RAD 13:49
PROVIDERS: PCP Family Medicine; Visit Provider Family Medicine
DX: I16.1 Hypertensive emergency; I11.0 Hypertensive heart disease with heart failure; I50.30 Unspecified diastolic (congestive) heart failure; I65.23 Occlusion and stenosis of bilateral carotid arteries
CPT/HCPCS: 93306; 93880

== ENCOUNTER 2023-10-23 18:08 | Emergency (ER) | payer BC, MEDICAID, SELFPAY ==
[2023-10-23 18:21] VITALS: BP 176/115; PULSE 69; RESP 18; TEMP 36.8; O2SAT 99; BMI 26.4
--- NOTE | 2023-10-23 19:46 | W.ED.SKABFB ---
HPI - Skin/Abscess/Foreign Bdy General: Chief complaint: Skin/Abscess/Foreign Body Stated complaint: fish hook in left pinky Time Seen by Provider: 10/23/23 19:39 History of Present Illness: Patient presents to the ER with complaints of all trouble hook in his left pinky finger. This happened about an hour ago. He had steak made on the fishhook. He has tetanus is up-to-date and has no allergies. Review of Systems General: Reports: 10 or more systems reviewed and unremarkable except in HPI and below PFSH ED PFSH: Medical History Stage 3a chronic kidney disease Poorly-controlled hypertension H/O drainage of abscess Abscess of leg History of drug abuse Acute kidney injury superimposed on CKD Surgical History History of appendectomy Family History (Updated 02/24/23 @ 14:19 by Karen Jarvis LPN) Mother Cancer bladder Father Congestive heart failure (CHF) Family/Other Cancer Maternal aunts and uncles--prostate, lung Brother Cancer brain tumor Other Chronic kidney disease (CKD) Diabetes Hyperlipidemia Hypertension Hypothyroidism Lung disease Denies family history of Liver disease CAD (coronary artery disease) Aneurysm Autoimmune disease Dementia Psychiatric illness Bleeding disorder Stroke Social History (Updated 02/24/23 @ 14:20 by Karen Jarvis LPN) Smoking and tobacco/nicotine status: never used tobacco/nicotine Alcohol intake: never Substance/Drug Use: current Substance/Drug use frequency: daily Household members: spouse and children Marital status: Current occupational status: employed Current occupation: Runs a business Sexually active: Yes Do you think of yourself as: Straight/Heterosexual Current gender identity: Male Physical Exam Const: COMMON NORMALS: no acute distress, average body habitus, patient oriented x3, no limitations, healthy appearing, alert and well nourished Neck/C-Spine: COMMON NORMALS: no JVD Chest: COMMONS NORMALS: normal inspection of the chest and normal palpation of entire chest wall Resp: COMMON NORMALS: normal respiratory effort, No retractions, No use of accessory muscles and clear to auscultation bilaterally AUSCULTATION: clear to auscultation bilaterally Cardio: COMMON NORMALS: no JVD, regular rate, regular rhythm, S1 normal heart sound present, S2 normal heart sound present, No gallops present (Cardio), No clicks present (Cardio), No murmurs present (Cardio) and No rub (Cardio) RATE: regular rate RHYTHM: regular rhythm HEART SOUNDS: S1 normal heart sound present and S2 normal heart sound present Neuro: COMMON NORMALS: patient oriented x3 SENSORIUM/ORIENTATION: Yes alert Skin: NARRATIVE SKIN EXAM: Trouble hook embedded left pinky finger, Procedures Foreign Body Removal Time Out Performed: yes Site: left and hand (Pinky finger) Description of foreign body: fish hook Sedation/Analgesia: other (1 cc lidocaine local anesthesia) Technique: manual removal Confirmed by:: direct visualization Complications: none Post-procedure exam: awake, alert, normal BP, normal HR and normal O2 sat Neurovascular: normal distal pulse, normal capillary fill, distal light touch sensation intact (Patient is anesthetized with lidocaine), distal motor function normal and no signs of compartment syndrome Course Vital Signs: Vital signs: Vital Signs Temperature 98.2 F 10/23/23 18:21 Pulse Rate 68 10/23/23 19:59 Respiratory Rate 18 10/23/23 19:59 Blood Pressure 171/98 10/23/23 19:59 Pulse Oximetry 99 10/23/23 19:59 Oxygen Delivery Me thod Room Air 10/23/23 18:21 MDM - Skin/Abscess/Foreign Bdy Medicial Decision Making Patient's left pinky finger was anesthetized with approximately 1 cc of lidocaine near the fishhook insertion point and was extracted in reverse type fashion with no symptoms. Bleeding is controlled. Patient be given 1 dose of Bactrim here and a prescription sent to his pharmacy. Medical Records I reviewed the patient's medical records. Lab Data I reviewed the patient's lab results. No radiology studies performed this visit Discharge Plan Discharge Patient Disposition: Home Clinical Impression: Foreign body finger Condition: Stable Prescriptions: New Bactrim DS 800-160 mg tablet 1 tab PO BID Qty: 14 0RF No Action methadone 40 mg tablet,soluble 100 mg PO DAILY hydrochlorothiazide 25 mg tablet 25 mg PO QAM Qty: 60 0RF Rx Instructions: take 1/2 tablet x 7 days, then full tablet if blood pressure > 150/100 losartan 100 mg tablet 100 mg PO DAILY Qty: 90 1RF Discharge Orders: Discharge ED (Routine); Ordered 10/23/23 Ordered By: To [place] Referrals: Mina Jernigan MD [Primary Care Provider] - Patient Instructions: Soft Tissue Foreign Body (ED) Activity Restrictions/Additional Instructions: Your fishhook was removed in the ER without complication. Please take your antibiotic as directed as this will prophylactically prevent you from getting an infection. Please keep an eye for swelling, pain, purulent drainage if any of these happen please feel free to return to the ER or follow-up with your family practice physician. Coding Level of Care Code ED Director Of Sustainability for Anam Mijares
[2023-10-23] MEDS: sulfamethoxazole-trimeth DS 160-800 mg Tablet 1 TAB PO (19:57)
[2023-10-23 19:59] VITALS: BP 171/98; PULSE 68; RESP 18; O2SAT 99
== END 2023-10-23 20:02 | disposition home or self-care (01) ==
PROVIDERS: Emergency Provider Emergency Medicine; PCP Family Medicine
DX: S61.247A Puncture wound with foreign body of left little finger without damage to nail, initial encounter (principal); W26.8XXA Contact with other sharp object(s), not elsewhere classified, initial encounter; I12.9 Hypertensive chronic kidney disease with stage 1 through stage 4 chronic kidney disease, or unspecified chronic kidney disease; N18.31 Chronic kidney disease, stage 3a
CPT/HCPCS: 99283

== ENCOUNTER → 2024-01-17 10:47 | Outpatient (BNVA) | payer SELFPAY | PROVIDERS: PCP Family Medicine; Visit Provider Family Medicine | DX: N18.32 Chronic kidney disease, stage 3b (principal) | CPT/HCPCS: 80053; 80061; 85025 ==

== ENCOUNTER → 2024-08-14 08:46 | Outpatient (BNVA) | payer MEDICAID, SELFPAY | PROVIDERS: PCP Clinical Nurse Specialist Adult Health; Visit Provider Clinical Nurse Specialist Adult Health | DX: I10 Essential (primary) hypertension (principal); I12.9 Hypertensive chronic kidney disease with stage 1 through stage 4 chronic kidney disease, or unspecified chronic kidney disease; N18.4 Chronic kidney disease, stage 4 (severe); E11.8 Type 2 diabetes mellitus with unspecified complications | CPT/HCPCS: 80053; 81000; 82043; 85025 ==

== ENCOUNTER → 2024-08-15 08:41 | Outpatient (BNVA) | payer MEDICAID, SELFPAY | PROVIDERS: PCP Clinical Nurse Specialist Adult Health; Visit Provider Clinical Nurse Specialist Adult Health | DX: M25.512 Pain in left shoulder (principal) | CPT/HCPCS: 73030 ==

== ENCOUNTER → 2025-02-03 14:18 | Outpatient (BNVA) | payer BC, MEDICAID, SELFPAY | PROVIDERS: PCP Clinical Nurse Specialist Adult Health; Visit Provider Clinical Nurse Specialist Adult Health | DX: I12.9 Hypertensive chronic kidney disease with stage 1 through stage 4 chronic kidney disease, or unspecified chronic kidney disease (principal); N18.4 Chronic kidney disease, stage 4 (severe) | CPT/HCPCS: 80053; 85025 ==